=== PATIENT | male | born 1970 | race Caucasian/White ===

== ENCOUNTER 2021-09-19 13:33 | Inpatient (IN) ==
[2021-09-19] MEDS ORDERED: DEXAMETHASONE 4 MG TABLET PO ONE (14:07)
[2021-09-19] MEDS ORDERED: 0.9 % SODIUM CHLORIDE 1,000 ML IV ONE (14:07)
[2021-09-19] MEDS ORDERED: IPRATROPIUM/ALBUTEROL 3 ML AMPUL.NEB NEB PRN (14:07)
--- NOTE | 2021-09-19 14:15 | Emergency Department Note ---
SOB HPI General Chief Complaint: Shortness of Breath/Dyspnea Stated Complaint: shortness of breath, covid + Time Seen by Provider: 09/19/21 13:50 Source: patient and EMS Mode of arrival: EMS Limitations: no limitations History of Present Illness HPI Narrative: Patient is a 50-year-old gentleman who arrives to the emergency department by ambulance complaining of shortness of breath. History is provided by the iván head and review of his medical records. The patient started feeling ill around September 05. He took a home COVID test that was positive on September 06. He had been treating his symptoms at home but started feeling more short of breath on September 12. He was treated in the emergency department and his symptoms improved so he was discharged home. His symptoms worsened and he presented once again on September 16. He was found to be somewhat hypoxemic and started on nasal cannula oxygen with improvement in his symptoms. No bed was available and the patient did not want to be transferred so home oxygen was arranged and he was discharged home on dexamethasone which he has been taking as prescribed. Over the past 2 days his symptoms have continued to worsen. He denies any associated chest pain. He does continue to have a nonproductive cough. His fever and chills has resolved. This morning, he was feeling more short of breath so he decided to return for reevaluation. Nothing seems to make the symptoms any better. He has tried lying on his stomach but the symptoms seem to get worse. He did had a negative CT pulmonary angiogram on the seventh when he was here. Related Data Previous Rx's Medication Instructions Recorded albuterol sulfate 90 mcg/actuation 2 puff INHALATION Q6H PRN #8.5 g 09/16/21 aerosol inhaler dexamethasone 6 mg tablet 6 mg PO QDAY #7 tab 09/16/21 (Decadron) Allergies Allergy/AdvReac Type Severity Reaction Status Date / Time No Known Drug Allergies Allergy Verified 09/19/21 13:40 Review of Systems ROS ROS Narrative: Narrative: All systems ED: reviewed and negative except as stated. 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 Gen -patient is awake and alert and appears in moderate distress. The patient is well groomed. HEENT -head is atraumatic. There is no conjunctival pallor or scleral icterus. Mucous membranes are dry CV -S1-S2 regular rate and rhythm. Peripheral pulses are palpable. There is no JVD. Resp -breathing is somewhat labored while on supplemental oxygen via a nonrebreather. The patient is able to speak in short sentences but is visibly increased work of breathing after conversation. Lungs have mild rhonchi bilaterally. There is no cyanosis. GI - Abdomen is soft and nontender to palpation. There is no guarding or rebound tenderness. Derm -skin is warm and diaphoretic. There is no visible rash. MSK -present extremities are atraumatic. Psych -patient has appropriate affect. The patient does not appear internally stimulated. Neuro -patient answers questions appropriately with fluent speech. Patient moves all present extremities equally. General Limitations: no limitations Course Vital Signs Vital signs: Vital Signs Temperature 98.1 F 09/19/21 13:34 Pulse Rate 90 09/19/21 13:34 Respiratory Rate 24 H 09/19/21 13:34 Blood Pressure 154/95 09/19/21 13:34 Pulse Oximetry (%) 95 09/19/21 13:34 Temperature 98.1 F 09/19/21 13:34 Pulse Rate 90 09/19/21 15:46 Respiratory Rate 26 H 09/19/21 15:46 Blood Pressure 165/96 09/19/21 15:46 Pulse Oximetry (%) 98 09/19/21 15:46 [facility] MDM Narrative Medical decision making narrative: I personally performed interpreted limited bedside transthoracic echocardiogram and pulmonary ultrasound. I obtained an apical four-chamber view as well as parasternal long and short axis views. There is no pericardial effusion. There is normal left ventricular ejection fraction. There is no evidence of right ventricular strain. Lung dinero are B line predominant bilaterally. Patient presents with worsening shortness of breath in the setting of previously diagnosed COVID-19. I considered the possibility of a pulmonary embolus but his symptoms did not suddenly worsen and he had a negative CT pulmonary angiogram 2 days ago. 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 Patient was started on high flow nasal cannula oxygen and his symptoms improved. I discussed the patient's history examination and diagnostic findings with Dr. Cast, who agrees with the plan of care and accepts admission. Critical care time I provided 35 minutes of critical care time. This was in addition to any separately billable procedures. The patient was given supplemental oxygen to treat his hypoxemic respiratory failure. He was given dexamethasone to treat the causative COVID-19 pneumonia.. The patient was closely monitored for response to treatment and stability of vital signs throughout their emergency department stay. Lab Data Lab results reviewed: Yes I reviewed the patient's lab results. Result diagrams: 09/19/21 13:59 09/19/21 13:59 Labs: Lab Results 09/19/21 09/19/21 Range/Units 13:59 13:59 WBC 12.4 H (4.5-11.0) K/mcL RBC 4.67 (4.63-6.08) M/mcL Hgb 15.3 (13.7-17.5) g/dL Hct 45.2 (40.1-51.0) % MCV 96.8 (80.0-100.0) fL MCH 32.8 (26.0-34.0) pg MCHC 33.8 (31.0-36.0) g/dL RDW 12.4 (11.5-14.5) % Plt Count 256 (140-440) K/mcL MPV 9.7 (7.4-10.4) fL Neut % (Auto) 87.0 H (38.0-78.0) % Lymph % (Auto) 7.0 L (15.5-49.0) % [place] % (Auto) 5.7 (1.0-12.0) % Eos % (Auto) 0.1 (0.0-7.0) % Baso % (Auto) 0.2 (0.0-2.0) % Lymph # (Auto) 0.87 L (1.50-4.80) K/mcL [place] # (Auto) 0.70 (0.10-0.90) K/mcL Eos # (Auto) 0.01 (0.00-0.70) K/mcL Baso # (Auto) 0.02 (0.00-0.30) K/mcL Absolute Neutrophils 10.77 H (1.80-8.00) K/mcL Sodium 140 (133-145) mmol/L Potassium 4.2 (3.3-5.1) mmol/L Chloride 100 (96-108) mmol/L Carbon Dioxide 24 (22-30) mmol/L Anion Gap 16.0 (8.0-16.0) BUN 18 (6-20) mg/dL Creatinine 0.8 (0.7-1.2) mg/dL GFR Calculation 103 Glucose 130 H (70-105) mg/dL Calcium 8.8 (8.6-10.4) mg/dL Total Bilirubin 0.6 (0.1-1.0) mg/dL AST 109 H (<40) U/L ALT 173 H (<40) U/L Alkaline Phosphatase 124 H (39-117) U/L Total Protein 7.7 (5.9-8.4) gm/dL Albumin 3.7 (3.2-5.2) gm/dL Globulin 4.0 H (2.2-3.7) gm/dL Albumin/Globulin Ratio 0.9 L (1.0-2.3) EKG Data EKG #1: EKG attestation: Yes I reviewed and interpreted this EKG. EKG results narrative: EKG performed at 2:28 PM: Sinus rhythm, rate 87. Normal P wave QRS and T wave morphology. There U waves present in multiple leads. No ST segment deviation. Normal CA QRS and QTc duration. No old EKG immediately available for comparison. EKG was interpreted by me. 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
[2021-09-19 14:48] LABS: Basophils # (Auto) 0.02 K/mcL (0.00-0.30); Basophils % (Auto) 0.2 % (0.0-2.0); Eosinophils # (Auto) 0.01 K/mcL (0.00-0.70); Eosinophils % (Auto) 0.1 % (0.0-7.0); Hematocrit 45.2 % (40.1-51.0); Hemoglobin 15.3 g/dL (13.7-17.5); Lymphocytes # (Auto) 0.87 K/mcL (1.50-4.80); Mean Cell Volume 96.8 fL (80.0-100.0); Mean Corpuscular HGB Conc 33.8 g/dL (31.0-36.0); Mean Platelet Volume 9.7 fL (7.4-10.4); Monocytes % (Auto) 5.7 % (1.0-12.0); Platelet Count 256 K/mcL (140-440); RBC 4.67 M/mcL (4.63-6.08); Red Cell Distribution Width 12.4 % (11.5-14.5); WBC 12.4 K/mcL (4.5-11.0)
[2021-09-19] MEDS ORDERED: ACETAMINOPHEN 500 MG TABLET PO ONE (14:57)
--- NOTE | 2021-09-19 14:57 | XRay Report ---
CLINICAL INFORMATION: Pneumonia COMPARISON: None. TECHNIQUE: PA and Lateral views FINDINGS: The heart size, mediastinum and pulmonary vessels are unremarkable. Moderate, yet vague, patchy infiltrates are seen in both mid and lower lungs. There are no effusions. The bones and soft tissues are within normal limits. IMPRESSION: Moderate vague patchy infiltrates in both mid and lower lungs. Suspect infection Interpreted and Authenticated by: Humza Greene 09/19/21
[2021-09-19] MEDS ORDERED: ONDANSETRON 4 MG/2 ML VIAL IV ONE (14:58)
[2021-09-19 15:02] LABS: ALT/SGPT 173 U/L (<40); AST/SGOT 109 U/L (<40); Albumin 3.7 gm/dL (3.2-5.2); Albumin/Globulin Ratio 0.9 (1.0-2.3); Alkaline Phosphatase 124 U/L (39-117); Bilirubin,Total 0.6 mg/dL (0.1-1.0); Blood Urea Nitrogen 18 mg/dL (6-20); Calcium 8.8 mg/dL (8.6-10.4); Carbon Dioxide 24 mmol/L (22-30); Chloride 100 mmol/L (96-108); Glomerular Filtration Rate 103; Glucose 130 mg/dL (70-105)
--- NOTE | 2021-09-19 16:42 | Internal Med History&Physical ---
HPI History of Present Illness Patient information: Note initiated : 09/19/21 at 4:41 pm Service Date, if different from initiated Date: [] Patient: Ruben Helm 50 y/o M admitted on for shortness of breath, covid +. Chief Complaint: [] History of present illness: Ruben Helm is a 50-year-old male with obesity, BMI 31, and no other significant past medical history who was diagnosed with COVID-19 on 09/06/2021 with a home test kit. The patient presented to the emergency department on 09/12/2021 and was discharged to home, his symptoms progressively worsened and he returned to the emergency department on 09/16/2021 and was discharged to home with dexamethasone and home oxygen due to bed capacity constraints in the hospital. During that visit, a CT PE protocol was negative for pulmonary embolism and did show typical COVID-19 infiltrates. The patient returned to the emergency department on 09/19/2021 for progressively worsening symptoms and found to be severely hypoxic requiring heated and humidified high flow nasal cannula with an FiO2 of 80. Shows moderate vague patchy infiltrates in both the mid and lower lung dinero bilaterally. Hospital medicine was asked to admit the patient for further management. Review of systems Constitutional: Positive for chills, fever, fatigue Eyes: no vision changes or pain Cardiovascular: no chest pain, no palpitations Respiratory: Positive for dyspnea Gastrointestinal: Positive for diarrhea Genitourinary: no dysuria or difficulty voiding Musculoskeletal: Positive for lower back pain Integumentary: no skin lesion or wound Neurological: no focal weakness or numbness Psychiatric: Positive for anxiousness Physical exam Head: Atraumatic, normal inspection. Eyes: normal appearance, no scleral icterus. Neck: full ROM Respiratory: Respiratory rate in the mid 20s, diffuse bilateral fine crackles, no wheezing appreciated Cardiovascular: normal rate and rhythm, S1, S2. GI/Abdominal: Obesely distended, soft, nontender, no guarding. Extremities: full range of motion, nontender. Neurological: CN II-XII intact, intact motor, intact sensation. Psychiatric: normal mood. 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 for [place] license Social History alcohol intake frequency: 0-2 drinks per day substance use type: does not use MEDS/ALLERGIES Home Medications and Allergies Home Medications Medication Instructions Recorded Confirmed Type albuterol sulfate 90 mcg/actuation 2 puff INHALATION Q6H PRN #8.5 g 09/16/21 09/19/21 Rx aerosol inhaler dexamethasone 6 mg tablet 6 mg PO QDAY #7 tab 09/16/21 09/19/21 Rx (Decadron) Allergies Allergy/AdvReac Type Severity Reaction Status Date / Time No Known Drug Allergies Allergy Verified 09/19/21 13:40 EXAM Constitutional Vitals: Temp Pulse Resp BP Pulse Ox 98.1 F 90 26 H 165/96 98 09/19/21 13:34 09/19/21 15:46 09/19/21 15:46 09/19/21 15:46 09/19/21 15:46 DATA Data Completed and Pending Labs: Labs from last 24 hours 09/19/21 09/19/21 09/19/21 16:03 16:03 16:03 WBC RBC Hgb Hct MCV MCH MCHC RDW Plt Count MPV Neut % (Auto) Lymph % (Auto) [place] % (Auto) Eos % (Auto) Baso % (Auto) Lymph # (Auto) [place] # (Auto) Eos # (Auto) Baso # (Auto) Absolute Neutrophils Sodium Potassium Chloride Carbon Dioxide Anion Gap BUN Creatinine GFR Calculation Glucose Calcium Total Bilirubin AST ALT Alkaline Phosphatase Troponin T C-Reactive Protein Pending NT-Pro-B Natriuret Pep Total Protein Albumin Globulin Albumin/Globulin Ratio Procalcitonin Pending POC Troponin I 0 L 09/19/21 09/19/21 09/19/21 13:59 13:59 13:59 WBC RBC Hgb Hct MCV MCH MCHC RDW Plt Count MPV Neut % (Auto) Lymph % (Auto) [place] % (Auto) Eos % (Auto) Baso % (Auto) Lymph # (Auto) [place] # (Auto) Eos # (Auto) Baso # (Auto) Absolute Neutrophils Sodium 140 Potassium 4.2 Chloride 100 Carbon Dioxide 24 Anion Gap 16.0 BUN 18 Creatinine 0.8 GFR Calculation 103 Glucose 130 H Calcium 8.8 Total Bilirubin 0.6 AST 109 H ALT 173 H Alkaline Phosphatase 124 H Troponin T < 0.01 C-Reactive Protein NT-Pro-B Natriuret Pep 446.7 H Total Protein 7.7 Albumin 3.7 Globulin 4.0 H Albumin/Globulin Ratio 0.9 L Procalcitonin POC Troponin I 09/19/21 13:59 WBC 12.4 H RBC 4.67 Hgb 15.3 Hct 45.2 MCV 96.8 MCH 32.8 MCHC 33.8 RDW 12.4 Plt Count 256 MPV 9.7 Neut % (Auto) 87.0 H Lymph % (Auto) 7.0 L [place] % (Auto) 5.7 Eos % (Auto) 0.1 Baso % (Auto) 0.2 Lymph # (Auto) 0.87 L [place] # (Auto) 0.70 Eos # (Auto) 0.01 Baso # (Auto) 0.02 Absolute Neutrophils 10.77 H Sodium Potassium Chloride Carbon Dioxide Anion Gap BUN Creatinine GFR Calculation Glucose Calcium Total Bilirubin AST ALT Alkaline Phosphatase Troponin T C-Reactive Protein NT-Pro-B Natriuret Pep Total Protein Albumin Globulin Albumin/Globulin Ratio Procalcitonin POC Troponin I A/P Narrative A/P Narrative: Assessment: 50-year-old obese male admitted for acute hypoxic respiratory failure secondary to severe COVID-19 pneumonia. Symptom onset was 09/05/2021, diagnosis made by home test kit on 09/06/2021. The patient's symptoms progressed at home in spite of oral dexamethasone therapy. #Acute hypoxic respiratory failure #Severe COVID-19 pneumonia #Leukocytosis likely steroid induced #Elevated LFTs secondary to COVID illness #Obesity BMI 31 Plan -Dexamethasone 6 mg IV daily. Unlikely to benefit from remdesivir at this point given the duration of illness. -Trial of Lopressor 5 mg IV 3 times daily x3 based on [place] trial data. -Oxygen supplementation, HHFNC preferred but may require CPAP especially at bedtime. -Monitor respiratory status closely in PCU. -Check CRP and procalcitonin. -BANDAR SARS-CoV-2 and Influenza A+B antigen test. -Consider tocilizumab or baricitinib, empiric antibiotics. -Daily CBC, inpatient panel, CRP. -Regular diet. 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 -DVT prophylaxis: Lovenox SQ -Code status: Full -Disposition: Will depend on clinical course. Time Spent With Patient Time: Total time spent is greater than 50% in coordination of care (as documented) at patient's floor/unit and/or counseling patient:
[2021-09-19 18:34] LABS: Appearance,Urine Clear (Clear); Bilirubin,Urine Negative (Negative); Color,Urine Yellow; Culture Indicated,Urine No; Glucose,Urine (UA) Negative (Negative); Ketones,Urine Negative (Negative); Leukocyte Esterase,Urine Negative /uL (Negative); Mucus,Urine FEW /hpf; Nitrate,Urine Negative (Negative); Specific Gravity,Urine 1.015 (1.000-1.035); Urine Blood Negative ery/mcL (Negative); Urine Hyaline Cast 6 /lph (0-2); Urine RBC 0 /hpf (0-3); Urine Squamous Epithelial Cell 0 /hpf (0-4); Urine WBC 1 /hpf (0-4); Urobilinogen,Urine 2.0 E.U./dL mg/dL
[2021-09-19] MEDS ORDERED: LACTULOSE 20 GM/30 ML ORAL.SOL PO PRN (20:24)
[2021-09-19] MEDS ORDERED: SENNOSIDES 1 TABLET PO PRN (20:24)
[2021-09-19] MEDS ORDERED: ONDANSETRON 4 MG/2 ML VIAL IV PRN (20:24)
[2021-09-19 20:52] LABS: ALT/SGPT 184 U/L (<40); AST/SGOT 120 U/L (<40); Albumin 4.1 gm/dL (3.2-5.2); Albumin/Globulin Ratio 1.3 (1.0-2.3); Alkaline Phosphatase 134 U/L (39-117); Bilirubin,Direct 0.2 mg/dL (<0.3); Bilirubin,Total 0.5 mg/dL (0.1-1.0); Blood Urea Nitrogen 18 mg/dL (6-20); Calcium 9.3 mg/dL (8.6-10.4); Carbon Dioxide 21 mmol/L (22-30); Chloride 102 mmol/L (96-108); Globulin 3.2 gm/dL (2.2-3.7); Glomerular Filtration Rate 98; Glucose 131 mg/dL (70-105); Lactate Dehydrogenase 642 U/L (135-225); Phosphorous 3.6 mg/dL (2.5-4.5); Triglycerides 353 mg/dL (<150); Uric Acid 4.5 mg/dL (2.5-8.0)
[2021-09-19] MEDS: METOPROLOL TARTRATE 5 MG/5 ML VIAL IV SCH ×2 (20:52→22:55)
[2021-09-19] MEDS: cefTRIAXone 1 GM VIAL IV SCH (20:52)
[2021-09-19] MEDS: 0.9 % SODIUM CHLORIDE 10 ML SYRINGE IV SCH (20:52)
[2021-09-19] MEDS: AZITHROMYCIN 500 MG in DEXTROSE 5% IN WATER 250 ML IV SCH (21:14)
[2021-09-20] MEDS: METOPROLOL TARTRATE 5 MG/5 ML VIAL IV SCH ×2 (01:31→01:43)
[2021-09-20] MEDS: 0.9 % SODIUM CHLORIDE 10 ML SYRINGE IV SCH ×4 (04:43→23:55)
[2021-09-20 08:14] LABS: ALT/SGPT 142 U/L (<40); AST/SGOT 83 U/L (<40); Albumin 3.4 gm/dL (3.2-5.2); Albumin/Globulin Ratio 1.2 (1.0-2.3); Alkaline Phosphatase 111 U/L (39-117); Bilirubin,Direct 0.2 mg/dL (<0.3); Bilirubin,Total 0.6 mg/dL (0.1-1.0); Blood Urea Nitrogen 17 mg/dL (6-20); Calcium 8.2 mg/dL (8.6-10.4); Carbon Dioxide 21 mmol/L (22-30); Chloride 100 mmol/L (96-108); Globulin 2.8 gm/dL (2.2-3.7); Glomerular Filtration Rate 103; Glucose 131 mg/dL (70-105); Lactate Dehydrogenase 529 U/L (135-225); Triglycerides 253 mg/dL (<150); Uric Acid 4.8 mg/dL (2.5-8.0)
[2021-09-20] MEDS ORDERED: METOPROLOL TARTRATE 5 MG/5 ML VIAL IV SCH (09:00)
[2021-09-20] MEDS ORDERED: DEXAMETHASONE 10 MG/ML VIAL IV SCH (09:00)
[2021-09-20] MEDS: DEXAMETHASONE 10 MG/ML VIAL IV SCH (09:00)
[2021-09-20] MEDS: ENOXAPARIN 40 MG/0.4 ML SYRINGE SQ SCH (09:00)
[2021-09-20] MEDS: cefTRIAXone 1 GM VIAL IV SCH (09:00)
[2021-09-20 11:05] LABS: Hematocrit 39.8 % (40.1-51.0); Hemoglobin 13.8 g/dL (13.7-17.5); Mean Cell Volume 95.9 fL (80.0-100.0); Mean Corpuscular HGB Conc 34.7 g/dL (31.0-36.0); Mean Platelet Volume 10.4 fL (7.4-10.4); Platelet Count 196 K/mcL (140-440); RBC 4.15 M/mcL (4.63-6.08); Red Cell Distribution Width 12.4 % (11.5-14.5); WBC 10.6 K/mcL (4.5-11.0)
[2021-09-20 11:19] LABS: Lymphocytes % 3 % (15-49); Monocytes % (Manual) 8 % (1-12); Platelet Estimate NORMAL (Normal); RBC Morphology NORMAL (Normal); Reactive Lymphocytes 2 % (0-2); Segmented Neutrophils % 87 % (38-78)
[2021-09-20] MEDS: ACETAMINOPHEN 325 MG TABLET PO PRN (12:15)
--- NOTE | 2021-09-20 12:52 | Internal Med Progress Note ---
SUBJECTIVE Subjective Patient information: Note initiated : 09/20/21 at 12:44 pm Service Date, if different from initiated Date: [] Patient: Ruben Helm 50 y/o M admitted on 09/19/21 for shortness of breath, covid +. Chief Complaint: [] Interval history: Ruben Helm is a 50-year-old male with obesity, BMI 31, and no other significant past medical history who was diagnosed with COVID-19 on 09/06/2021 with a home test kit. The patient presented to the emergency department on 09/12/2021 and was discharged to home, his symptoms progressively worsened and he returned to the emergency department on 09/16/2021 and was discharged to home with dexamethasone and home oxygen due to bed capacity constraints in the hospital. During that visit, a CT PE protocol was negative for pulmonary embolism and did show typical COVID-19 infiltrates. The patient returned to the emergency department on 09/19/2021 for progressively worsening symptoms and found to be severely hypoxic requiring heated and humidified high flow nasal cannula with an FiO2 of 80. Show s moderate vague patchy infiltrates in both the mid and lower lung dinero bilaterally. Hospital medicine was asked to admit the patient for further management. 09/20 Requiring HHFNC with flow of 30, FIO2 80. Increased Dexamethasone to 20 mg IV daily for severe ARDS. CRP trending up. BANDAR negative for COVID and Influenza A+B. Physical exam Head: Atraumatic, normal inspection. Eyes: normal appearance, no scleral icterus. Neck: full ROM Respiratory: Respiratory rate in the mid 20s, diffuse bilateral fine crackles, no wheezing appreciated Cardiovascular: normal rate and rhythm, S1, S2. GI/Abdominal: Obesely distended, soft, nontender, no guarding. Extremities: full range of motion, nontender. Neurological: CN II-XII intact, intact motor, intact sensation. Psychiatric: normal mood. Skin: warm, normal color Constitutional Vitals: Vital Signs Temp Pulse Resp BP Pulse Ox 98.2 F 61 26 H 145/80 85 L 09/20/21 12:01 09/20/21 07:15 09/20/21 12:08 09/20/21 12:01 09/20/21 12:08 Period Temp Pulse Resp BP Sys/Reyes Pulse Ox Last 24 Hr 98.1 F-99.8 F 55-98 18-38 128-168/64-103 85-100 Intake and Output 09/19/21 09/20/21 09/20/21 21:59 05:59 13:59 Intake Total 1000 250 Output Total 300 1100 600 Balance 700 -850 -600 Weight 105.279 kg Intake & Output: Intake & Output 09/19/21 09/20/21 09/20/21 21:59 05:59 13:59 Intake Total 1000 250 Output Total 300 1100 600 Balance 700 -850 -600 Weight 105.279 kg Intake: IV 1000 250 Sodium Chloride 0.9% 1,000 ml @ 1000 Wide Open IV BOLUS ONE Rx#: [id number] Zithromax 500 mg In Dextrose 5% 250 in Water 250 ml @ 250 mls/hr IV Q24H [facility] Rx#:[id number] Output: Void Amount 300 1100 600 Other: Urine Appearance Clear Clear Clear Urine Color Dark Yellow Bright Yellow Bright Yellow Urine Odor Normal OBJ DATA Labs CBC & Chem 7: 09/20/21 06:33 09/20/21 06:29 Labs: Abnormal Lab Results 09/20/21 09/20/21 09/20/21 06:33 06:31 06:29 WBC RBC 4.15 L Hct 39.8 L Neut % (Auto) Lymph % (Auto) Lymph # (Auto) Seg Neutrophils % 87 H Lymphocytes % 3 L Absolute Neutrophils Sodium Potassium 5.2 H Carbon Dioxide 21 L Anion Gap Glucose 131 H Calcium 8.2 L Magnesium 2.8 H GGT 212 H AST 83 H ALT 142 H Alkaline Phosphatase Lactate Dehydrogenase 529 H C-Reactive Protein 11.70 H NT-Pro-B Natriuret Pep Globulin Albumin/Globulin Ratio Triglycerides 253 H Procalcitonin Urine Protein Urine Urobilinogen Hyaline Casts Urine Mucus POC Troponin I 09/19/21 09/19/21 09/19/21 16:30 16:03 16:03 WBC RBC Hct Neut % (Auto) Lymph % (Auto) Lymph # (Auto) Seg Neutrophils % Lymphocytes % Absolute Neutrophils Sodium 146 H Potassium Carbon Dioxide 21 L Anion Gap 23.0 H Glucose 131 H Calcium Magnesium 2.6 H GGT 252 H AST 120 H ALT 184 H Alkaline Phosphatase 134 H Lactate Dehydrogenase 642 H C-Reactive Protein 7.60 H NT-Pro-B Natriuret Pep Globulin Albumin/Globulin Ratio Triglycerides 353 H Procalcitonin Urine Protein 30 mg/dl A Urine Urobilinogen 2.0 e.u./dl A Hyaline Casts 6 H Urine Mucus Few A POC Troponin I 09/19/21 09/19/21 09/19/21 16:03 16:03 13:59 WBC RBC Hct Neut % (Auto) Lymph % (Auto) Lymph # (Auto) Seg Neutrophils % Lymphocytes % Absolute Neutrophils Sodium Potassium Carbon Dioxide Anion Gap Glucose Calcium Magnesium GGT AST ALT Alkaline Phosphatase Lactate Dehydrogenase C-Reactive Protein NT-Pro-B Natriuret Pep 446.7 H Globulin Albumin/Globulin Ratio Triglycerides Procalcitonin 0.28 H Urine Protein Urine Urobilinogen Hyaline Casts Urine Mucus POC Troponin I 0 L 09/19/21 09/19/21 13:59 13:59 WBC 12.4 H RBC Hct Neut % (Auto) 87.0 H Lymph % (Auto) 7.0 L Lymph # (Auto) 0.87 L Seg Neutrophils % Lymphocytes % Absolute Neutrophils 10.77 H Sodium Potassium Carbon Dioxide Anion Gap Glucose 130 H Calcium Magnesium GGT AST 109 H ALT 173 H Alkaline Phosphatase 124 H Lactate Dehydrogenase C-Reactive Protein NT-Pro-B Natriuret Pep Globulin 4.0 H Albumin/Globulin Ratio 0.9 L Triglycerides Procalcitonin Urine Protein Urine Urobilinogen Hyaline Casts Urine Mucus POC Troponin I Meds: Medications Acetaminophen (Acetaminophen 325 Mg Tablet) 650 mg PO Q6HP PRN; Protocol PRN Reason: Per Pain Protocol/Fever > 101 Last Admin: 09/20/21 12:15 Dose: 650 mg Documented by: Ceftriaxone Sodium (Ceftriaxone 1 Gm Vial) 1 gm IV Q24H [facility]; Protocol Last Admin: 09/20/21 09:00 Dose: 1 gm Documented by: Dexamethasone (Dexamethasone 10 Mg/Ml Vial) 20 mg IV DAILY [facility] Stop: 09/25/21 08:59 Last Admin: 09/20/21 09:00 Dose: 20 mg Documented by: Dexamethasone (Dexamethasone 10 Mg/Ml Vial) 10 mg IV DAILY [facility] Stop: 09/30/21 08:59 Enoxaparin Sodium (Enoxaparin 40 Mg/0.4 Ml Syringe) 40 mg SQ DAILY [facility] Last Admin: 09/20/21 09:00 Dose: 40 mg Documented by: Azithromycin 500 mg/ Dextrose 250 mls @ 250 mls/hr IV Q24H [facility]; Protocol Stop: 09/21/21 21:23 Last Infusion: 09/19/21 22:56 Dose: Infused Documented by: Lactulose (Lactulose 20 Gm/30 Ml Oral.Comfort) 10 gm PO DAILYP PRN PRN Reason: Constipation Ondansetron HCl (Ondansetron 4 Mg/2 Ml Vial) 4 mg IV Q4HP PRN; Protocol PRN Reason: Nausea And Vomiting Senna (Sennosides 1 Tablet) 2 tab PO HSP PRN PRN Reason: Constipation Sodium Chloride (0.9 % Sodium Chloride 10 Ml Syringe) 10 ml IV Q8 [facility]ANI Last Admin: 09/20/21 12:16 Dose: 10 ml Documented by: A/P Narrative A/P Narrative: Assessment: 50-year-old obese male admitted for acute hypoxic respiratory failure secondary to severe COVID-19 pneumonia. Symptom onset was 09/05/2021, diagnosis made by home test kit on 09/06/2021. The patient's symptoms progressed at home in spite of oral dexamethasone therapy. #Acute hypoxic respiratory failure #Severe COVID-19 pneumonia/ARDS #Mid-range procalcitonin #Leukocytosis likely steroid induced #Elevated LFTs secondary to COVID illness #Obesity BMI 31 Plan -Dexamethasone 6 mg IV daily. Unlikely to benefit from remdesivir at this point given the duration of illness. -Oxygen supplementation, HHFNC preferred but may require CPAP especially at bedtime. -Empiric Ceftriaxone and Azithromycin. -PANTHER results pending. -Monitor respiratory status closely in PCU. -Discontinue Lopressor for bradycardia. -Daily CBC, inpatient panel, CRP. -Regular diet. 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 -Prone position as able. -DVT prophylaxis: Lovenox SQ -Code status: Full -Disposition: Will depend on clinical course. Time Spent With Patient Time: Total time spent is greater than 50% in coordination of care (as documented) at patient's floor/unit and/or counseling patient: QUALITY VTE Deep Vein Thrombosis/Pulmonary Embolism Present on Admission: No
[2021-09-20] MEDS: AZITHROMYCIN 500 MG in DEXTROSE 5% IN WATER 250 ML IV SCH (15:24)
[2021-09-20] MEDS: DEXMEDETOMIDINE 400 MCG in PREMIX 1 BAG IV PRN (16:01)
[2021-09-20] MEDS: 0.9 % SODIUM CHLORIDE 250 ML IV SCH (16:01)
--- NOTE | 2021-09-20 21:01 | EKG ---
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
[2021-09-21] MEDS: ACETAMINOPHEN 325 MG TABLET PO PRN (01:51)
[2021-09-21] MEDS: DEXMEDETOMIDINE 400 MCG in PREMIX 1 BAG IV PRN ×2 (02:04→10:31)
[2021-09-21] MEDS: 0.9 % SODIUM CHLORIDE 10 ML SYRINGE IV SCH ×3 (03:40→20:30)
[2021-09-21] MEDS: 0.9 % SODIUM CHLORIDE 250 ML IV SCH ×2 (04:36→17:35)
[2021-09-21 06:45] LABS: Hematocrit 40.6 % (40.1-51.0); Hemoglobin 13.9 g/dL (13.7-17.5); Mean Cell Volume 94.9 fL (80.0-100.0); Mean Corpuscular HGB Conc 34.2 g/dL (31.0-36.0); Mean Platelet Volume 10.7 fL (7.4-10.4); Platelet Count 172 K/mcL (140-440); RBC 4.28 M/mcL (4.63-6.08)
[2021-09-21 07:09] LABS: ALT/SGPT 200 U/L (<40); AST/SGOT 83 U/L (<40); Albumin 3.4 gm/dL (3.2-5.2); Albumin/Globulin Ratio 1.1 (1.0-2.3); Alkaline Phosphatase 149 U/L (39-117); Bilirubin,Direct 0.3 mg/dL (<0.3); Bilirubin,Total 0.7 mg/dL (0.1-1.0); Blood Urea Nitrogen 21 mg/dL (6-20); Calcium 8.4 mg/dL (8.6-10.4); Carbon Dioxide 21 mmol/L (22-30); Chloride 97 mmol/L (96-108); Glomerular Filtration Rate 103; Glucose 237 mg/dL (70-105); Lactate Dehydrogenase 521 U/L (135-225); Phosphorous 4.2 mg/dL (2.5-4.5); Triglycerides 206 mg/dL (<150); Uric Acid 5.5 mg/dL (2.5-8.0)
[2021-09-21 07:22] LABS: Band Neutrophils % 2 % (0-10); Lymphocytes % 6 % (15-49); Monocytes % (Manual) 3 % (1-12); Platelet Estimate NORMAL (Normal); RBC Morphology NORMAL (Normal); Segmented Neutrophils % 89 % (38-78)
[2021-09-21] MEDS: DEXAMETHASONE 10 MG/ML VIAL IV SCH (08:02)
[2021-09-21] MEDS: ENOXAPARIN 40 MG/0.4 ML SYRINGE SQ SCH (08:02)
[2021-09-21] MEDS ORDERED: METOPROLOL TARTRATE 5 MG/5 ML VIAL IV SCH (09:00)
--- NOTE | 2021-09-21 09:48 | XRay Report ---
CLINICAL INFORMATION: Follow-up infiltrates COMPARISON: 09/19/2021 TECHNIQUE: Portable FINDINGS: The heart size, mediastinum and pulmonary vessels are unremarkable. Moderate patchy infiltrates in both mid and lower lungs have progressed considerably since the comparison exam two days ago. No effusions. Bones and soft tissues normal. IMPRESSION: Moderate patchy infiltrates both mid and lower lungs progressing considerably over the past two days Interpreted and Authenticated by: Humza Greene 09/21/21
[2021-09-21] MEDS: cefTRIAXone 1 GM VIAL IV SCH (10:32)
[2021-09-21] MEDS: AZITHROMYCIN 500 MG in DEXTROSE 5% IN WATER 250 ML IV SCH (14:14)
[2021-09-21] MEDS: BARICITINIB 2 MG TABLET PO SCH (14:14)
[2021-09-21] MEDS: traMADol 50 MG TABLET PO PRN ×2 (15:12→20:30)
--- NOTE | 2021-09-21 18:55 | Internal Med Progress Note ---
SUBJECTIVE Subjective Patient information: Note initiated : 09/21/21 at 6:52 pm Service Date, if different from initiated Date: [] Patient: Ruben Helm 50 y/o M admitted on 09/19/21 for shortness of breath, covid +. Chief Complaint: [] Interval history: Ruben Helm is a 50-year-old male with obesity, BMI 31, and no other significant past medical history who was diagnosed with COVID-19 on 09/06/2021 with a home test kit. The patient presented to the emergency department on 09/12/2021 and was discharged to home, his symptoms progressively worsened and he returned to the emergency department on 09/16/2021 and was discharged to home with dexamethasone and home oxygen due to bed capacity constraints in the hospital. During that visit, a CT PE protocol was negative for pulmonary embolism and did show typical COVID-19 infiltrates. The patient returned to the emergency department on 09/19/2021 for progressively worsening symptoms and found to be severely hypoxic requiring heated and humidified high flow nasal cannula with an FiO2 of 80. Shows moderate vague patchy infiltrates in both the mid and lower lung dinero bilaterally. Hospital medicine was asked to admit the patient for further management. 09/20 Requiring HHFNC with flow of 30, FIO2 80. Increased Dexamethasone to 20 mg IV daily for severe ARDS. CRP trending up. BANDAR negative for COVID and Influenza A+B. 09/21 Increasing CRP, started Baricitinib. PANTHER resulted as not detected. Clinically this appears to be ARDS secondary to a COVID illness that started around 09/04/21. Physical exam Head: Atraumatic, normal inspection. Eyes: normal appearance, no scleral icterus. Neck: full ROM Respiratory: Respiratory rate in the mid 20s, diffuse bilateral fine crackles, no wheezing appreciated Cardiovascular: normal rate and rhythm, S1, S2. GI/Abdominal: Obesely distended, soft, nontender, no guarding. Extremities: full range of motion, nontender. Neurological: CN II-XII intact, intact motor, intact sensation. Psychiatric: normal mood. Skin: warm, normal color Constitutional Vitals: Vital Signs Temp Pulse Resp BP Pulse Ox 96.9 F L 72 18 131/87 91 09/21/21 16:01 09/21/21 11:04 09/21/21 18:06 09/21/21 18:01 09/21/21 18:06 Period Temp Pulse Resp BP Sys/Reyes Pulse Ox Last 24 Hr 96.9 F-98.3 F 72-72 15-34 119-168/76-101 87-97 Intake and Output 09/21/21 09/21/21 09/21/21 05:59 13:59 21:59 Intake Total 1267 700 839 Output Total 475 800 700 Balance 792 -100 139 Intake & Output: Intake & Output 09/21/21 09/21/21 09/21/21 05:59 13:59 21:59 Intake Total 1267 700 839 Output Total 475 800 700 Balance 792 -100 139 Intake: IV 307 100 599 Sodium Chloride 0.9% 250 ml @ 250 250 20 mls/hr IV .[id number] [facility] Rx#: [id number] Zithromax 500 mg In Dextrose 5% 250 in Water 250 ml @ 250 mls/hr IV Q24H [facility] Rx#:[id number] Precedex 400 Mcg/100 ml 57 100 99 Dextrose 400 Mcg In Premix 1 Bag @ 0.2 MCG/KG/HR 5.264 mls/ hr IV .Q19H [facility] Rx#:[id number] Oral 960 600 240 Output: Void Amount 475 800 700 Other: Meal Pineapple Breakfast Lunch Percent of Meal Consumed 100% 75% 75% Feeding Ability Total Assistance Independent Independent Urine Appearance Clear Clear Clear Urine Color Dark Yellow Light Lara Dark Yellow Urine Odor Normal Normal OBJ DATA Labs CBC & Chem 7: 09/21/21 05:23 09/21/21 05:22 Labs: Abnormal Lab Results 09/21/21 09/21/21 09/21/21 05:23 05:23 05:22 WBC RBC 4.28 L Hct MPV 10.7 H Neut % (Auto) Lymph % (Auto) Lymph # (Auto) Seg Neutrophils % 89 H Lymphocytes % 6 L Absolute Neutrophils Sodium Potassium Carbon Dioxide 21 L Anion Gap BUN 21 H Glucose 237 H Calcium 8.4 L Magnesium 3.1 H Direct Bilirubin 0.3 H GGT 300 H AST 83 H ALT 200 H Alkaline Phosphatase 149 H Lactate Dehydrogenase 521 H C-Reactive Protein 23.30 H NT-Pro-B Natriuret Pep Globulin Albumin/Globulin Ratio Triglycerides 206 H Procalcitonin Urine Protein Urine Urobilinogen Hyaline Casts Urine Mucus POC Troponin I 09/20/21 09/20/21 09/20/21 06:33 06:31 06:29 WBC RBC 4.15 L Hct 39.8 L MPV Neut % (Auto) Lymph % (Auto) Lymph # (Auto) Seg Neutrophils % 87 H Lymphocytes % 3 L Absolute Neutrophils Sodium Potassium 5.2 H Carbon Dioxide 21 L Anion Gap BUN Glucose 131 H Calcium 8.2 L Magnesium 2.8 H Direct Bilirubin GGT 212 H AST 83 H ALT 142 H Alkaline Phosphatase Lactate Dehydrogenase 529 H C-Reactive Protein 11.70 H NT-Pro-B Natriuret Pep Globulin Albumin/Globulin Ratio Triglycerides 253 H Procalcitonin Urine Protein Urine Urobilinogen Hyaline Casts Urine Mucus POC Troponin I 09/19/21 09/19/21 09/19/21 16:30 16:03 16:03 WBC RBC Hct MPV Neut % (Auto) Lymph % (Auto) Lymph # (Auto) Seg Neutrophils % Lymphocytes % Absolute Neutrophils Sodium 146 H Potassium Carbon Dioxide 21 L Anion Gap 23.0 H BUN Glucose 131 H Calcium Magnesium 2.6 H Direct Bilirubin GGT 252 H AST 120 H ALT 184 H Alkaline Phosphatase 134 H Lactate Dehydrogenase 642 H C-Reactive Protein 7.60 H NT-Pro-B Natriuret Pep Globulin Albumin/Globulin Ratio Triglycerides 353 H Procalcitonin Urine Protein 30 mg/dl A Urine Urobilinogen 2.0 e.u./dl A Hyaline Casts 6 H Urine Mucus Few A POC Troponin I 09/19/21 09/19/21 09/19/21 16:03 16:03 13:59 WBC RBC Hct MPV Neut % (Auto) Lymph % (Auto) Lymph # (Auto) Seg Neutrophils % Lymphocytes % Absolute Neutrophils Sodium Potassium Carbon Dioxide Anion Gap BUN Glucose Calcium Magnesium Direct Bilirubin GGT AST ALT Alkaline Phosphatase Lactate Dehydrogenase C-Reactive Protein NT-Pro-B Natriuret Pep 446.7 H Globulin Albumin/Globulin Ratio Triglycerides Procalcitonin 0.28 H Urine Protein Urine Urobilinogen Hyaline Casts Urine Mucus POC Troponin I 0 L 09/19/21 09/19/21 13:59 13:59 WBC 12.4 H RBC Hct MPV Neut % (Auto) 87.0 H Lymph % (Auto) 7.0 L Lymph # (Auto) 0.87 L Seg Neutrophils % Lymphocytes % Absolute Neutrophils 10.77 H Sodium Potassium Carbon Dioxide Anion Gap BUN Glucose 130 H Calcium Magnesium Direct Bilirubin GGT AST 109 H ALT 173 H Alkaline Phosphatase 124 H Lactate Dehydrogenase C-Reactive Protein NT-Pro-B Natriuret Pep Globulin 4.0 H Albumin/Globulin Ratio 0.9 L Triglycerides Procalcitonin Urine Protein Urine Urobilinogen Hyaline Casts Urine Mucus POC Troponin I Meds: Medications Acetaminophen (Acetaminophen 325 Mg Tablet) 650 mg PO Q6HP PRN; Protocol PRN Reason: Per Pain Protocol/Fever > 101 Last Admin: 09/21/21 01:51 Dose: 650 mg Documented by: Ceftriaxone Sodium (Ceftriaxone 1 Gm Vial) 1 gm IV Q24H [facility]; Protocol Last Admin: 09/21/21 10:32 Dose: 1 gm Documented by: Dexamethasone (Dexamethasone 10 Mg/Ml Vial) 20 mg IV DAILY [facility] Stop: 09/25/21 08:59 Last Admin: 09/21/21 08:02 Dose: 20 mg Documented by: Dexamethasone (Dexamethasone 10 Mg/Ml Vial) 10 mg IV DAILY [facility] Stop: 09/30/21 08:59 Enoxaparin Sodium (Enoxaparin 40 Mg/0.4 Ml Syringe) 40 mg SQ DAILY [facility] Last Admin: 09/21/21 08:02 Dose: 40 mg Documented by: Azithromycin 500 mg/ Dextrose 250 mls @ 250 mls/hr IV Q24H [facility]; Protocol Stop: 09/21/21 21:23 Last Infusion: 09/21/21 15:15 Dose: Infused Documented by: Dexmedetomidine HCl 400 mcg/ (Premix) 100 mls @ 5.264 mls/hr IV .Q19H PRN; Protocol PRN Reason: Anxiety Last Titration: 09/21/21 18:49 Dose: Infused Documented by: Sodium Chloride (Sodium Chloride 0.9%) 250 mls @ 20 mls/hr IV .[id number] [facility] Last Admin: 09/21/21 17:35 Dose: 20 mls/hr Documented by: Lactulose (Lactulose 20 Gm/30 Ml Oral.Comfort) 10 gm PO DAILYP PRN PRN Reason: Constipation Ondansetron HCl (Ondansetron 4 Mg/2 Ml Vial) 4 mg IV Q4HP PRN; Protocol PRN Reason: Nausea And Vomiting Senna (Sennosides 1 Tablet) 2 tab PO HSP PRN PRN Reason: Constipation Sodium Chloride (0.9 % Sodium Chloride 10 Ml Syringe) 10 ml IV Q8 [facility] Last Admin: 09/21/21 14:14 Dose: 10 ml Documented by: Tramadol HCl (Tramadol 50 Mg Tablet) 50 mg PO Q4HP PRN; Protocol PRN Reason: Pain Last Admin: 09/21/21 15:12 Dose: 50 mg Documented by: A/P Narrative A/P Narrative: Assessment: 50-year-old obese male admitted for acute hypoxic respiratory failure secondary to severe COVID-19 pneumonia. Symptom onset was 09/05/2021, diagnosis made by home test kit on 09/06/2021. The patient's symptoms progressed at home in spite of oral dexamethasone therapy. #Acute hypoxic respiratory failure #Severe ARDS likely secondary to COVID #Mid-range procalcitonin #Leukocytosis likely steroid induced #Elevated LFTs secondary to COVID illness #Obesity BMI 31 Plan -High dose Dexamethasone for severe ARDS. Unlikely to benefit from remdesivir at this point given the duration of illness. -Start Baricitinib for increasing inflammatory markers. -Oxygen supplementation, HHFNC preferred but may require CPAP especially at bedtime. -Empiric Ceftriaxone and Azithromycin. -Monitor respiratory status closely in PCU. -Daily CBC, inpatient panel, CRP. -Regular diet. 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 -Prone position as able. -DVT prophylaxis: Lovenox SQ -Code status: Full -Disposition: Will depend on clinical course. Time Spent With Patient Time: Total time spent is greater than 50% in coordination of care (as documented) at patient's floor/unit and/or counseling patient: QUALITY VTE Deep Vein Thrombosis/Pulmonary Embolism Present on Admission: No
[2021-09-22] MEDS: 0.9 % SODIUM CHLORIDE 10 ML SYRINGE IV SCH ×4 (03:15→21:53)
[2021-09-22] MEDS: traMADol 50 MG TABLET PO PRN ×3 (03:15→21:52)
[2021-09-22] MEDS: DEXMEDETOMIDINE 400 MCG in PREMIX 1 BAG IV PRN (03:30)
[2021-09-22] MEDS: 0.9 % SODIUM CHLORIDE 250 ML IV SCH (06:21)
[2021-09-22 06:29] LABS: Hemoglobin 13.9 g/dL (13.7-17.5); Mean Cell Volume 93.7 fL (80.0-100.0); Mean Corpuscular HGB Conc 34.8 g/dL (31.0-36.0); Mean Platelet Volume 11.2 fL (7.4-10.4); Platelet Count 216 K/mcL (140-440); RBC 4.27 M/mcL (4.63-6.08); Red Cell Distribution Width 11.8 % (11.5-14.5)
[2021-09-22 07:03] LABS: ALT/SGPT 198 U/L (<40); AST/SGOT 58 U/L (<40); Albumin 3.4 gm/dL (3.2-5.2); Albumin/Globulin Ratio 1.1 (1.0-2.3); Alkaline Phosphatase 138 U/L (39-117); Bilirubin,Direct < 0.2 mg/dL (0-0.3); Bilirubin,Total 0.4 mg/dL (0.1-1.0); Blood Urea Nitrogen 24 mg/dL (6-20); Calcium 8.5 mg/dL (8.6-10.4); Carbon Dioxide 21 mmol/L (22-30); Chloride 99 mmol/L (96-108); Globulin 3.1 gm/dL (2.2-3.7); Glomerular Filtration Rate 109; Glucose 224 mg/dL (70-105); Lactate Dehydrogenase 469 U/L (135-225); Phosphorous 4.4 mg/dL (2.5-4.5); Triglycerides 258 mg/dL (<150); Uric Acid 6.1 mg/dL (2.5-8.0)
[2021-09-22 07:57] LABS: Band Neutrophils % 1 % (0-10); Lymphocytes % 6 % (15-49); Monocytes % (Manual) 7 % (1-12); Platelet Estimate NORMAL (Normal); RBC Morphology NORMAL (Normal); Segmented Neutrophils % 86 % (38-78)
[2021-09-22] MEDS: cefTRIAXone 1 GM VIAL IV SCH (08:26)
[2021-09-22] MEDS: BARICITINIB 2 MG TABLET PO SCH (08:26)
[2021-09-22] MEDS: DEXAMETHASONE 10 MG/ML VIAL IV SCH (08:26)
[2021-09-22] MEDS: ENOXAPARIN 40 MG/0.4 ML SYRINGE SQ SCH (08:27)
[2021-09-22] MEDS ORDERED: DEXTROSE 31 GM ORAL.SUSP PO PRN (16:59)
[2021-09-22] MEDS ORDERED: DEXTROSE 50% 50 ML VIAL IV PRN (16:59)
--- NOTE | 2021-09-22 16:59 | Internal Med Progress Note ---
SUBJECTIVE Subjective Patient information: Note initiated : 09/22/21 at 4:57 pm Service Date, if different from initiated Date: [] Patient: Ruben Helm 50 y/o M admitted on 09/19/21 for shortness of breath, covid +. Chief Complaint: [] Interval history: Ruben Helm is a 50-year-old male with obesity, BMI 31, and no other significant past medical history who was diagnosed with COVID-19 on 09/06/2021 with a home test kit. The patient presented to the emergency department on 09/12/2021 and was discharged to home, his symptoms progressively worsened and he returned to the emergency department on 09/16/2021 and was discharged to home with dexamethasone and home oxygen due to bed capacity constraints in the hospital. During that visit, a CT PE protocol was negative for pulmonary embolism and did show typical COVID-19 infiltrates. The patient returned to the emergency department on 09/19/2021 for progressively worsening symptoms and found to be severely hypoxic requiring heated and humidified high flow nasal cannula with an FiO2 of 80. Shows moderate vague patchy infiltrates in both the mid and lower lung dinero bilaterally. Hospital medicine was asked to admit the patient for further management. 09/20 Requiring HHFNC with flow of 30, FIO2 80. Increased Dexamethasone to 20 mg IV daily for severe ARDS. CRP trending up. BANDAR negative for COVID and Influenza A+B. 09/21 Increasing CRP, started Baricitinib. PANTHER resulted as not detected. Clinically this appears to be ARDS secondary to a COVID illness that started around 09/04/21. Started Precedex for anxiety due to dyspnea. 09/22 Oxygenation improved after proning, continues on HHFNC. Feeling better today, CRP downtrending. Trial of Atarax prn for anxiety. Physical exam Head: Atraumatic, normal inspection. Eyes: normal appearance, no scleral icterus. Neck: full ROM Respiratory: Respiratory rate in the mid teens, HHFNC, diffuse bilateral fine crackles. Cardiovascular: normal rate and rhythm, S1, S2. GI/Abdominal: Obesely distended, soft, nontender, no guarding. Extremities: full range of motion, nontender. Neurological: CN II-XII intact, intact motor, intact sensation. Psychiatric: normal mood. Skin: warm, normal color Constitutional Vitals: Vital Signs Temp Pulse Resp BP Pulse Ox 98.2 F 54 L 16 146/82 91 09/22/21 16:01 09/22/21 10:17 09/22/21 16:47 09/22/21 16:01 09/22/21 16:47 Period Temp Pulse Resp BP Sys/Reyes Pulse Ox Last 24 Hr 97.3 F-98.6 F 54-54 15-26 100-186/72-103 88-97 Intake and Output 09/22/21 09/22/21 09/22/21 05:59 13:59 21:59 Intake Total 480 1599 259 Output Total 775 950 Balance -295 1599 691 Intake & Output: Intake & Output 09/22/21 09/22/21 09/22/21 05:59 13:59 21:59 Intake Total 480 1599 259 Output Total 775 950 Balance -295 1599 691 Intake: Nourishment/Supplement quantity 477 (ml) IV 282 259 Sodium Chloride 0.9% 250 ml @ 250 209 20 mls/hr IV .[id number] [facility] Rx#: [id number] Precedex 400 Mcg/100 ml 32 50 Dextrose 400 Mcg In Premix 1 Bag @ 0.2 MCG/KG/HR 5.264 mls/ hr IV .Q19H [facility]N Rx#:[id number] Oral 480 840 Output: Void Amount 775 950 Other: Meal Lunch Percent of Meal Consumed 100% Feeding Ability Independent Nourishment/Supplement name Ensure Urine Appearance Clear Clear Urine Color Bright Yellow Pale Urine Odor Normal Normal Stool Size Moderate Moderate Stool Color Brown Brown Stool Consistency Soft Soft Loose Loose # Bowel Movements 1 1 OBJ DATA Labs CBC & Chem 7: 09/22/21 05:26 09/22/21 05:21 Labs: Abnormal Lab Results 09/22/21 09/22/21 09/22/21 05:26 05:22 05:21 WBC 12.0 H RBC 4.27 L Hct 40.0 L MPV 11.2 H Seg Neutrophils % 86 H Lymphocytes % 6 L Sodium Potassium Carbon Dioxide 21 L Anion Gap BUN 24 H Glucose 224 H Calcium 8.5 L Magnesium Direct Bilirubin GGT 249 H AST 58 H ALT 198 H Alkaline Phosphatase 138 H Lactate Dehydrogenase 469 H C-Reactive Protein 12.30 H Triglycerides 258 H Procalcitonin Urine Protein Urine Urobilinogen Hyaline Casts Urine Mucus 09/21/21 09/21/21 09/21/21 05:23 05:23 05:22 WBC RBC 4.28 L Hct MPV 10.7 H Seg Neutrophils % 89 H Lymphocytes % 6 L Sodium Potassium Carbon Dioxide 21 L Anion Gap BUN 21 H Glucose 237 H Calcium 8.4 L Magnesium 3.1 H Direct Bilirubin 0.3 H GGT 300 H AST 83 H ALT 200 H Alkaline Phosphatase 149 H Lactate Dehydrogenase 521 H C-Reactive Protein 23.30 H Triglycerides 206 H Procalcitonin Urine Protein Urine Urobilinogen Hyaline Casts Urine Mucus 09/20/21 09/20/21 09/20/21 06:33 06:31 06:29 WBC RBC 4.15 L Hct 39.8 L MPV Seg Neutrophils % 87 H Lymphocytes % 3 L Sodium Potassium 5.2 H Carbon Dioxide 21 L Anion Gap BUN Glucose 131 H Calcium 8.2 L Magnesium 2.8 H Direct Bilirubin GGT 212 H AST 83 H ALT 142 H Alkaline Phosphatase Lactate Dehydrogenase 529 H C-Reactive Protein 11.70 H Triglycerides 253 H Procalcitonin Urine Protein Urine Urobilinogen Hyaline Casts Urine Mucus 09/19/21 09/19/21 09/19/21 16:30 16:03 16:03 WBC RBC Hct MPV Seg Neutrophils % Lymphocytes % Sodium 146 H Potassium Carbon Dioxide 21 L Anion Gap 23.0 H BUN Glucose 131 H Calcium Magnesium 2.6 H Direct Bilirubin GGT 252 H AST 120 H ALT 184 H Alkaline Phosphatase 134 H Lactate Dehydrogenase 642 H C-Reactive Protein 7.60 H Triglycerides 353 H Procalcitonin Urine Protein 30 mg/dl A Urine Urobilinogen 2.0 e.u./dl A Hyaline Casts 6 H Urine Mucus Few A 09/19/21 16:03 WBC RBC Hct MPV Seg Neutrophils % Lymphocytes % Sodium Potassium Carbon Dioxide Anion Gap BUN Glucose Calcium Magnesium Direct Bilirubin GGT AST ALT Alkaline Phosphatase Lactate Dehydrogenase C-Reactive Protein Triglycerides Procalcitonin 0.28 H Urine Protein Urine Urobilinogen Hyaline Casts Urine Mucus Meds: Medications Acetaminophen (Acetaminophen 325 Mg Tablet) 650 mg PO Q6HP PRN; Protocol PRN Reason: Per Pain Protocol/Fever > 101 Last Admin: 09/21/21 01:51 Dose: 650 mg Documented by: Ceftriaxone Sodium (Ceftriaxone 1 Gm Vial) 1 gm IV Q24H [facility]; Protocol Last Admin: 09/22/21 08:26 Dose: 1 gm Documented by: Dexamethasone (Dexamethasone 10 Mg/Ml Vial) 20 mg IV DAILY [facility] Stop: 09/25/21 08:59 Last Admin: 09/22/21 08:26 Dose: 20 mg Documented by: Dexamethasone (Dexamethasone 10 Mg/Ml Vial) 10 mg IV DAILY [facility] Stop: 09/30/21 08:59 Enoxaparin Sodium (Enoxaparin 40 Mg/0.4 Ml Syringe) 40 mg SQ DAILY [facility] Last Admin: 09/22/21 08:27 Dose: 40 mg Documented by: Hydroxyzine HCl (Hydroxyzine 25 Mg Tablet) 25 mg PO TIDP PRN PRN Reason: Anxiety Dexmedetomidine HCl 400 mcg/ (Premix) 100 mls @ 5.264 mls/hr IV .Q19H PRN; Protocol PRN Reason: Anxiety Last Titration: 09/22/21 15:55 Dose: 0 mcg/kg/hr, 0 mls/hr Documented by: Sodium Chloride (Sodium Chloride 0.9%) 250 mls @ 20 mls/hr IV .[id number] [facility] Last Infusion: 09/22/21 16:47 Dose: 0 mls/hr Documented by: Lactulose (Lactulose 20 Gm/30 Ml Oral.Comfort) 10 gm PO DAILYP PRN PRN Reason: Constipation Ondansetron HCl (Ondansetron 4 Mg/2 Ml Vial) 4 mg IV Q4HP PRN; Protocol PRN Reason: Nausea And Vomiting Senna (Sennosides 1 Tablet) 2 tab PO HSP PRN PRN Reason: Constipation Sodium Chloride (0.9 % Sodium Chloride 10 Ml Syringe) 10 ml IV Q8 [facility] Last Admin: 09/22/21 15:53 Dose: 10 ml Documented by: Tramadol HCl (Tramadol 50 Mg Tablet) 50 mg PO Q4HP PRN; Protocol PRN Reason: Pain Last Admin: 09/22/21 08:27 Dose: 50 mg Documented by: A/P Narrative A/P Narrative: Assessment: 50-year-old obese male admitted for acute hypoxic respiratory failure secondary to severe COVID-19 pneumonia. Symptom onset was 09/05/2021, diagnosis made by home test kit on 09/06/2021. The patient's symptoms progressed at home in spite of oral dexamethasone therapy. #Acute hypoxic respiratory failure #Severe ARDS likely secondary to COVID #Mid-range procalcitonin #Leukocytosis likely steroid induced #Elevated LFTs secondary to COVID illness #Obesity BMI 31 Plan -High dose Dexamethasone for severe ARDS. -Continued Baricitinib daily. -Unlikely to benefit from remdesivir at this point in this illness. -Oxygen supplementation, preferably with HHFNC if tolerated, weaning to nasal canula. -Empiric Ceftriaxone and Azithromycin. -Discontinue Precedex infusion prn for anxiety. -Monitor respiratory status closely in PCU. -Daily CBC, inpatient panel, CRP. -Regular diet. 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 -Encourage prone position as able. -DVT prophylaxis: Lovenox SQ -Code status: Full -Disposition: Will depend on clinical course. Time Spent With Patient Time: Total time spent is greater than 50% in coordination of care (as documented) at patient's floor/unit and/or counseling patient: QUALITY VTE Deep Vein Thrombosis/Pulmonary Embolism Present on Admission: No
[2021-09-22] MEDS: INSULIN LISPRO 1 UNIT/0.01 ML UNIT SQ SCH ×2 (17:36→21:52)
[2021-09-22] MEDS: hydrOXYzine 25 MG TABLET PO PRN (21:52)
[2021-09-22] MEDS ORDERED: DEXMEDETOMIDINE 100 ML IV ONE (23:20)
[2021-09-22] MEDS: DEXMEDETOMIDINE 400 MCG in PREMIX 1 BAG IV SCH (23:29)
[2021-09-23] MEDS: 0.9 % SODIUM CHLORIDE 10 ML SYRINGE IV SCH ×3 (04:40→21:47)
[2021-09-23 06:42] LABS: Hematocrit 41.4 % (40.1-51.0); Hemoglobin 14.4 g/dL (13.7-17.5); Mean Cell Volume 93.7 fL (80.0-100.0); Mean Corpuscular HGB Conc 34.8 g/dL (31.0-36.0); Mean Platelet Volume 11.2 fL (7.4-10.4); Platelet Count 235 K/mcL (140-440); RBC 4.42 M/mcL (4.63-6.08); Red Cell Distribution Width 11.6 % (11.5-14.5); WBC 11.3 K/mcL (4.5-11.0)
[2021-09-23 07:16] LABS: ALT/SGPT 537 U/L (<40); AST/SGOT 184 U/L (<40); Albumin 3.5 gm/dL (3.2-5.2); Albumin/Globulin Ratio 1.1 (1.0-2.3); Alkaline Phosphatase 155 U/L (39-117); Bilirubin,Direct < 0.2 mg/dL (0-0.3); Bilirubin,Total 0.4 mg/dL (0.1-1.0); Blood Urea Nitrogen 26 mg/dL (6-20); Calcium 8.8 mg/dL (8.6-10.4); Carbon Dioxide 23 mmol/L (22-30); Chloride 97 mmol/L (96-108); Globulin 3.2 gm/dL (2.2-3.7); Glomerular Filtration Rate 109; Glucose 167 mg/dL (70-105); Lactate Dehydrogenase 455 U/L (135-225); Phosphorous 4.7 mg/dL (2.5-4.5); Triglycerides 222 mg/dL (<150); Uric Acid 6.4 mg/dL (2.5-8.0)
[2021-09-23] MEDS: DEXAMETHASONE 10 MG/ML VIAL IV SCH (08:10)
[2021-09-23] MEDS: ENOXAPARIN 40 MG/0.4 ML SYRINGE SQ SCH (08:11)
[2021-09-23] MEDS: cefTRIAXone 1 GM VIAL IV SCH (08:11)
[2021-09-23] MEDS: traMADol 50 MG TABLET PO PRN (08:11)
[2021-09-23] MEDS: INSULIN LISPRO 1 UNIT/0.01 ML UNIT SQ SCH ×4 (08:12→21:10)
[2021-09-23] MEDS: hydrOXYzine 25 MG TABLET PO PRN (08:12)
[2021-09-23] MEDS: BARICITINIB 2 MG TABLET PO SCH (08:13)
[2021-09-23 08:41] LABS: Lymphocytes % 9 % (15-49); Monocytes % (Manual) 5 % (1-12); Platelet Estimate NORMAL (Normal); RBC Morphology NORMAL (Normal); Segmented Neutrophils % 86 % (38-78)
[2021-09-23 08:56] LABS: Hepatitis C Virus Antibody Non-Reactive (Non-Reactive)
[2021-09-23] MEDS: DIAZEPAM 2 MG TABLET PO PRN ×3 (10:56→22:51)
--- NOTE | 2021-09-23 11:48 | Internal Med Progress Note ---
SUBJECTIVE Subjective Patient information: Note initiated : 09/23/21 at 11:44 am Service Date, if different from initiated Date: [] Patient: Ruben Helm a 50 y/o M admitted on 09/19/21 for shortness of breath, covid +. Chief Complaint: [] Interval history: Ruben Helm is a 50-year-old male with obesity, BMI 31, and no other significant past medical history who was diagnosed with COVID-19 on 09/06/2021 with a home test kit. The patient presented to the emergency department on 09/12/2021 and was discharged to home, his symptoms progressively worsened and he returned to the emergency department on 09/16/2021 and was discharged to home with dexamethasone and home oxygen due to bed capacity constraints in the hospital. During that visit, a CT PE protocol was negative for pulmonary embolism and did show typical COVID-19 infiltrates. The patient returned to the emergency department on 09/19/2021 for progressively worsening symptoms and found to be severely hypoxic requiring heated and humidified high flow nasal cannula with an FiO2 of 80. Show s moderate vague patchy infiltrates in both the mid and lower lung dinero bilaterally. Hospital medicine was asked to admit the patient for further management. 09/20 Requiring HHFNC with flow of 30, FIO2 80. Increased Dexamethasone to 20 mg IV daily for severe ARDS. CRP trending up. BANDAR negative for COVID and Influenza A+B. 09/21 Increasing CRP, started Baricitinib. PANTHER resulted as not detected. Clinically this appears to be ARDS secondary to a COVID illness that started around 09/04/21. Started Precedex for anxiety due to dyspnea. 09/22 Oxygenation improved after proning, continues on HHFNC. Feeling better today, CRP downtrending. Trial of Atarax prn for anxiety. 09/23 Atarax did not suffice for anxiety, went back on Precedex infusion overnight for anxiety. This morning started Valium prn for anxiety. Overall oxygenation has improved. Oxygen saturation improves when the patient is asleep and anxiety is controlled. LFT trending up, ordered a RUQ ultrasound and hepatitis b and c screening. Physical exam Head: Atraumatic, normal inspection. Eyes: normal appearance, no scleral icterus. Neck: full ROM Respiratory: Respiratory rate in the mid teens, HHFNC, diffuse bilateral fine crackles. Cardiovascular: normal rate and rhythm, S1, S2. GI/Abdominal: Obesely distended, soft, nontender, no guarding. Extremities: full range of motion, nontender. Neurological: CN II-XII intact, intact motor, intact sensation. Psychiatric: normal mood. Skin: warm, normal color Constitutional Vitals: Vital Signs Temp Pulse Resp BP Pulse Ox 97.4 F 54 L 29 H 105/74 91 09/23/21 11:02 09/23/21 10:08 09/23/21 11:02 09/23/21 11:02 09/23/21 11:02 Period Temp Pulse Resp BP Sys/Reyes Pulse Ox Last 24 Hr 97.2 F-98.9 F 54-54 13-31 100-187/67-130 88-98 Intake and Output 09/22/21 09/23/21 09/23/21 21:59 05:59 13:59 Intake Total 976 45 691 Output Total 7179 760 2124 Balance -474 255 -709 Weight 104.19 kg 104.19 kg Patient Weight 09/24/21 05:59 Weight 104.19 kg Intake & Output: Intake & Output 09/22/21 09/23/21 09/23/21 21:59 05:59 13:59 Intake Total 976 45 691 Output Total 1783 296 5943 Balance -474 -255 -709 Weight 104.19 kg 104.19 kg Intake: Nourishment/Supplement quantity 237 240 (ml) IV 259 45 51 Sodium Chloride 0.9% 250 ml @ 209 20 mls/hr IV .[id number] [facility] Rx#: [id number] Precedex 400 Mcg/100 ml 50 45 51 Dextrose 400 Mcg In Premix 1 Bag @ 0.2 MCG/KG/HR 5.21 mls/hr IV .[id number] [facility] Rx#:[id number] Oral 480 400 Output: Void Amount 1106 921 5938 Other: Meal Dinner Breakfast Percent of Meal Consumed 100% 100% Feeding Ability Independent Nourishment/Supplement name Ensure Urine Appearance Clear Clear Urine Color Pale Bright Yellow Urine Odor Normal Stool Size Moderate Small Stool Color Brown Brown Stool Consistency Liquid Loose Loose # Bowel Movements 1 1 OBJ DATA Labs CBC & Chem 7: 09/23/21 05:50 09/23/21 05:50 Labs: Abnormal Lab Results 0109/23/21 09/22/21 05:50 05:50 05:26 WBC 11.3 H 12.0 H RBC 4.42 L 4.27 L Hct 40.0 L MPV 11.2 H 11.2 H Seg Neutrophils % 86 H 86 H Lymphocytes % 9 L 6 L Carbon Dioxide BUN 26 H Glucose 167 H Calcium Phosphorus 4.7 H Magnesium Direct Bilirubin GGT 307 H AST 184 H ALT 537 H Alkaline Phosphatase 155 H Lactate Dehydrogenase 455 H C-Reactive Protein Triglycerides 222 H 09/22/21 09/22/21 09/21/21 05:22 05:21 05:23 WBC RBC Hct MPV Seg Neutrophils % Lymphocytes % Carbon Dioxide 21 L BUN 24 H Glucose 224 H Calcium 8.5 L Phosphorus Magnesium Direct Bilirubin GGT 249 H AST 58 H ALT 198 H Alkaline Phosphatase 138 H Lactate Dehydrogenase 469 H C-Reactive Protein 12.30 H 23.30 H Triglycerides 258 H 09/21/21 09/21/21 05:23 05:22 WBC RBC 4.28 L Hct MPV 10.7 H Seg Neutrophils % 89 H Lymphocytes % 6 L Carbon Dioxide 21 L BUN 21 H Glucose 237 H Calcium 8.4 L Phosphorus Magnesium 3.1 H Direct Bilirubin 0.3 H GGT 300 H AST 83 H ALT 200 H Alkaline Phosphatase 149 H Lactate Dehydrogenase 521 H C-Reactive Protein Triglycerides 206 H Meds: Medications Acetaminophen (Acetaminophen 325 Mg Tablet) 650 mg PO Q6HP PRN; Protocol PRN Reason: Per Pain Protocol/Fever > 101 Last Admin: 09/21/21 01:51 Dose: 650 mg Documented by: Ceftriaxone Sodium (Ceftriaxone 1 Gm Vial) 1 gm IV Q24H [facility]; Protocol Last Admin: 09/23/21 08:11 Dose: 1 gm Documented by: Dexamethasone (Dexamethasone 10 Mg/Ml Vial) 20 mg IV DAILY [facility] Stop: 09/25/21 08:59 Last Admin: 09/23/21 08:10 Dose: 20 mg Documented by: Dexamethasone (Dexamethasone 10 Mg/Ml Vial) 10 mg IV DAILY [facility] Stop: 09/30/21 08:59 Dextrose (Dextrose 50% 50 Ml Vial) 0 ml IV UD PRN PRN Reason: Hypoglycemia Diagnostic Test (Pha) (Accu-Chek 1 Each Strip) 1 each FS ACHS [facility] Last Admin: 09/23/21 11:17 Dose: 1 each Documented by: Diazepam (Diazepam 2 Mg Tablet) 2 mg PO TIDP PRN PRN Reason: anxiety Last Admin: 09/23/21 10:56 Dose: 2 mg Documented by: Enoxaparin Sodium (Enoxaparin 40 Mg/0.4 Ml Syringe) 40 mg SQ DAILY [facility] Last Admin: 09/23/21 08:11 Dose: 40 mg Documented by: Glucose (Dextrose 31 Gm Oral.Susp) 15 gm PO PRN PRN PRN Reason: Hypoglycemia Dexmedetomidine HCl 400 mcg/ (Premix) 100 mls @ 5.21 mls/hr IV .[id number] [facility]; Protocol Last Titration: 09/23/21 11:17 Dose: Infused Documented by: Insulin Human Lispro (Insulin Lispro 1 Unit/0.01 Ml Unit) 0 unit SQ ACHS [facility]; Protocol Last Admin: 09/23/21 08:12 Dose: 1 units Documented by: Lactulose (Lactulose 20 Gm/30 Ml Oral.Comfort) 10 gm PO DAILYP PRN PRN Reason: Constipation Ondansetron HCl (Ondansetron 4 Mg/2 Ml Vial) 4 mg IV Q4HP PRN; Protocol PRN Reason: Nausea And Vomiting Senna (Sennosides 1 Tablet) 2 tab PO HSP PRN PRN Reason: Constipation Sodium Chloride (0.9 % Sodium Chloride 10 Ml Syringe) 10 ml IV Q8 [facility] Last Admin: 09/23/21 04:40 Dose: 10 ml Documented by: Tramadol HCl (Tramadol 50 Mg Tablet) 50 mg PO Q4HP PRN; Protocol PRN Reason: Pain Last Admin: 09/23/21 08:11 Dose: 50 mg Documented by: A/P Narrative A/P Narrative: Assessment: 50-year-old obese male admitted for acute hypoxic respiratory failure secondary to severe COVID-19 pneumonia. Symptom onset was 09/05/2021, diagnosis made by home test kit on 09/06/2021. The patient's symptoms progressed at home in spite of oral dexamethasone therapy. #Acute hypoxic respiratory failure #Severe ARDS likely secondary to COVID #Mid-range procalcitonin #Leukocytosis likely steroid induced #Elevated LFTs likely secondary to COVID illness #Obesity BMI 31 Plan -High dose Dexamethasone for severe ARDS. -Continued Baricitinib daily. -Unlikely to benefit from remdesivir at this point in this illness. -Oxygen supplementation, preferably with HHFNC if tolerated, weaning to nasal canula. -Empiric Ceftriaxone and Azithromycin. -Valium prn for anxiety. -Wean off Precedex infusion prn for anxiety. -Monitor respiratory status closely in PCU. -Daily CBC, inpatient panel, CRP. -RUQ ultrasound for elevated LFT -Hepatitis B surface antigen. -Hepatitis C ab w/ reflect PCR. -Regular diet. -quality assurance monitor final. -Encourage prone position as able. -DVT prophylaxis: Lovenox SQ -Code status: Full -Disposition: Will depend on clinical course. Time Spent With Patient Time: Total time spent is greater than 50% in coordination of care (as documented) at patient's floor/unit and/or counseling patient: QUALITY VTE Deep Vein Thrombosis/Pulmonary Embolism Present on Admission: No
[2021-09-23] MEDS ORDERED: REMDESIVIR 200 MG in 0.9 % SODIUM CHLORIDE 250 ML IV ONE (14:12)
[2021-09-23] MEDS ORDERED: REMDESIVIR 100 MG in 0.9 % SODIUM CHLORIDE 250 ML IV SCH (14:15)
--- NOTE | 2021-09-23 14:20 | Internal Med Progress Note ---
SUBJECTIVE Subjective Patient information: Note initiated : 09/23/21 at 2:09 pm Service Date, if different from initiated Date: [] Patient: Ruben Helm a 50 y/o M admitted on 09/19/21 for shortness of breath, covid +. Chief Complaint: [] Interval history: Ruben Helm is a 50-year-old male with obesity, BMI 31, and no other significant past medical history who was diagnosed with COVID-19 on 09/06/2021 with a home test kit. The patient presented to the emergency department on 09/12/2021 and was discharged to home, his symptoms progressively worsened and he returned to the emergency department on 09/16/2021 and was discharged to home with dexamethasone and home oxygen due to bed capacity constraints in the hospital. During that visit, a CT PE protocol was negative for pulmonary embolism and did show typical COVID-19 infiltrates. The patient returned to the emergency department on 09/19/2021 for progressively worsening symptoms and found to be severely hypoxic requiring heated and humidified high flow nasal cannula with an FiO2 of 80. Shows moderate vague patchy infiltrates in both the mid and lower lung dinero bilaterally. Hospital medicine was asked to admit the patient for further management. 09/20 Requiring HHFNC with flow of 30, FIO2 80. Increased Dexamethasone to 20 mg IV daily for severe ARDS. CRP trending up. BANDAR negative for COVID and Influenza A+B. 09/21 Increasing CRP, started Baricitinib. PANTHER resulted as not detected. Clinically this appears to be ARDS secondary to a COVID illness that started around 09/04/21. Started Precedex for anxiety due to dyspnea. 09/22 Oxygenation improved after proning, continues on HHFNC. Feeling better today, CRP downtrending. Trial of Atarax prn for anxiety. 09/23 Atarax did not suffice for anxiety, went back on Precedex infusion overnight for anxiety. This morning started Valium prn for anxiety. Overall oxygenation has improved. Oxygen saturation improves when the patient is asleep and anxiety is controlled. LFT trending up, ordered a RUQ ultrasound and hepatitis b and c screening. 09/24 Constitutional Vitals: Vital Signs Temp Pulse Resp BP Pulse Ox 97.4 F 54 L 20 98/69 96 09/23/21 11:02 09/23/21 10:08 09/23/21 13:15 09/23/21 13:15 09/23/21 13:15 Period Temp Pulse Resp BP Sys/Reyes Pulse Ox Last 24 Hr 97.2 F-98.9 F 54-54 13-31 98-187/67-130 88-98 Intake and Output 09/23/21 09/23/21 09/23/21 05:59 13:59 21:59 Intake Total 45 691 Output Total 300 1400 Balance -255 -709 Weight 104.19 kg Patient Weight 09/24/21 05:59 Weight 104.19 kg Intake & Output: Intake & Output 09/23/21 09/23/21 09/23/21 05:59 13:59 21:59 Intake Total 45 691 Output Total 300 1400 Balance -255 -709 Weight 104.19 kg Intake: Nourishment/Supplement quantity 240 (ml) IV 45 51 Precedex 400 Mcg/100 ml 45 51 Dextrose 400 Mcg In Premix 1 Bag @ 0.2 MCG/KG/HR 5.21 mls/hr IV .[id number] [facility] Rx#:[id number] Oral 400 Output: Void Amount 300 1400 Other: Meal Breakfast Percent of Meal Consumed 100% Urine Appearance Clear Urine Color Bright Yellow Stool Size Small Stool Color Brown Stool Consistency Loose # Bowel Movements 1 Exam: General: Alert, Awake, No acute Distress, obese Eyes/N/T: EOMI, Head/Neck: neck supple, CV: RRR, No murmurs, Pulm: diffuse rales b/l, no wheezing Abd: soft, nontender, +BS x4 Ext: no clubbing/cyanosis/edema Neuro: Alert, no focal deficits, moves all extremities, Skin: warm/dry OBJ DATA Labs CBC & Chem 7: 09/23/21 05:50 09/23/21 05:50 Labs: Abnormal Lab Results 09/23/21 09/23/21 09/22/21 05:50 05:50 05:26 WBC 11.3 H 12.0 H RBC 4.42 L 4.27 L Hct 40.0 L MPV 11.2 H 11.2 H Seg Neutrophils % 86 H 86 H Lymphocytes % 9 L 6 L Carbon Dioxide BUN 26 H Glucose 167 H Calcium Phosphorus 4.7 H Magnesium Direct Bilirubin GGT 307 H AST 184 H ALT 537 H Alkaline Phosphatase 155 H Lactate Dehydrogenase 455 H C-Reactive Protein Triglycerides 222 H 09/22/21 09/22/21 09/21/21 05:22 05:21 05:23 WBC RBC Hct MPV Seg Neutrophils % Lymphocytes % Carbon Dioxide 21 L BUN 24 H Glucose 224 H Calcium 8.5 L Phosphorus Magnesium Direct Bilirubin GGT 249 H AST 58 H ALT 198 H Alkaline Phosphatase 138 H Lactate Dehydrogenase 469 H C-Reactive Protein 12.30 H 23.30 H Triglycerides 258 H 09/21/21 09/21/21 05:23 05:22 WBC RBC 4.28 L Hct MPV 10.7 H Seg Neutrophils % 89 H Lymphocytes % 6 L Carbon Dioxide 21 L BUN 21 H Glucose 237 H Calcium 8.4 L Phosphorus Magnesium 3.1 H Direct Bilirubin 0.3 H GGT 300 H AST 83 H ALT 200 H Alkaline Phosphatase 149 H Lactate Dehydrogenase 521 H C-Reactive Protein Triglycerides 206 H Meds: Medications Acetaminophen (Acetaminophen 325 Mg Tablet) 650 mg PO Q6HP PRN; Protocol PRN Reason: Per Pain Protocol/Fever > 101 Last Admin: 09/21/21 01:51 Dose: 650 mg Documented by: Ceftriaxone Sodium (Ceftriaxone 1 Gm Vial) 1 gm IV Q24H [facility]; Protocol Last Admin: 09/23/21 08:11 Dose: 1 gm Documented by: Dexamethasone (Dexamethasone 10 Mg/Ml Vial) 20 mg IV DAILY [facility] Stop: 09/25/21 08:59 Last Admin: 09/23/21 08:10 Dose: 20 mg Documented by: Dexamethasone (Dexamethasone 10 Mg/Ml Vial) 10 mg IV DAILY [facility] Stop: 09/30/21 08:59 Dextrose (Dextrose 50% 50 Ml Vial) 0 ml IV UD PRN PRN Reason: Hypoglycemia Diagnostic Test (Pha) (Accu-Chek 1 Each Strip) 1 each FS ACHS [facility] Last Admin: 09/23/21 11:17 Dose: 1 each Documented by: Diazepam (Diazepam 2 Mg Tablet) 2 mg PO TIDP PRN PRN Reason: anxiety Last Admin: 09/23/21 10:56 Dose: 2 mg Documented by: Enoxaparin Sodium (Enoxaparin 40 Mg/0.4 Ml Syringe) 40 mg SQ DAILY [facility] Last Admin: 09/23/21 08:11 Dose: 40 mg Documented by: Glucose (Dextrose 31 Gm Oral.Susp) 15 gm PO PRN PRN PRN Reason: Hypoglycemia Dexmedetomidine HCl 400 mcg/ (Premix) 100 mls @ 5.21 mls/hr IV .[id number] [facility]; Protocol Last Titration: 09/23/21 11:17 Dose: Infused Documented by: Insulin Human Lispro (Insulin Lispro 1 Unit/0.01 Ml Unit) 0 unit SQ ACHS [facility]; Protocol Last Admin: 09/23/21 12:35 Dose: 2 units Documented by: Lactulose (Lactulose 20 Gm/30 Ml Oral.Comfort) 10 gm PO DAILYP PRN PRN Reason: Constipation Ondansetron HCl (Ondansetron 4 Mg/2 Ml Vial) 4 mg IV Q4HP PRN; Protocol PRN Reason: Nausea And Vomiting Senna (Sennosides 1 Tablet) 2 tab PO HSP PRN PRN Reason: Constipation Sodium Chloride (0.9 % Sodium Chloride 10 Ml Syringe) 10 ml IV Q8 [facility] Last Admin: 09/23/21 12:36 Dose: 10 ml Documented by: Tramadol HCl (Tramadol 50 Mg Tablet) 50 mg PO Q4HP PRN; Protocol PRN Reason: Pain Last Admin: 09/23/21 08:11 Dose: 50 mg Documented by: A/P Narrative A/P Narrative: A: #Covid PNA w/Severe ARDS: -elevated pct #Acute hypoxic respiratory failure: -on vapotherm #Leukocytosis: likely steroid induced #Transaminitis: likely 2/2 viral COVID illness. -liver U/S showing #Obesity: BMI 31 Plan: -High dose Dexamethasone for severe ARDS / Baricitinib / -Oxygen supplementation, preferably with HHFNC if tolerated, weaning to nasal canula. -Empiric Ceftriaxone / Azithromycin -Valium prn for anxiety -Wean off Precedex infusion prn for anxiety -Hepatitis B surface antigen /Hepatitis C ab w/ reflect PCR. liver u/s -Planning/mobilization/OOB to chair -pt/ot -ppx: Lovenox SQ Code status: Placement Manager Spent With Patient Time: Total time spent is greater than 50% in coordination of care (as documented) at patient's floor/unit and/or counseling patient: QUALITY VTE Deep Vein Thrombosis/Pulmonary Embolism Present on Admission: No
--- NOTE | 2021-09-23 17:00 | Ultrasound Report ---
CLINICAL INFORMATION: Limited LFTs COMPARISON: None. FINDINGS: Liver is normal in size and echotexture without focal lesion. Gallbladder and bile ducts are normal CBD is 3 mm. Pancreas was not well visualized no gross abnormality. No free fluid. IMPRESSION: Liver, gallbladder and bile ducts unremarkable. Pancreas not visualized Interpreted and Authenticated by: Humza Greene 09/23/21
[2021-09-23] MEDS: DEXMEDETOMIDINE 400 MCG in PREMIX 1 BAG IV SCH (18:33)
[2021-09-24] MEDS: DEXMEDETOMIDINE 400 MCG in PREMIX 1 BAG IV SCH ×2 (00:51→15:34)
[2021-09-24] MEDS: 0.9 % SODIUM CHLORIDE 10 ML SYRINGE IV SCH ×3 (04:38→22:10)
[2021-09-24 06:53] LABS: Hematocrit 42.3 % (40.1-51.0); Hemoglobin 14.4 g/dL (13.7-17.5); Mean Cell Volume 95.1 fL (80.0-100.0); Platelet Count 279 K/mcL (140-440); RBC 4.45 M/mcL (4.63-6.08); Red Cell Distribution Width 11.9 % (11.5-14.5); WBC 11.3 K/mcL (4.5-11.0)
[2021-09-24 07:36] LABS: ALT/SGPT 595 U/L (<40); AST/SGOT 177 U/L (<40); Albumin 3.7 gm/dL (3.2-5.2); Albumin/Globulin Ratio 1.2 (1.0-2.3); Alkaline Phosphatase 146 U/L (39-117); Bilirubin,Direct < 0.2 mg/dL (0-0.3); Bilirubin,Total 0.5 mg/dL (0.1-1.0); Blood Urea Nitrogen 28 mg/dL (6-20); Calcium 8.7 mg/dL (8.6-10.4); Carbon Dioxide 22 mmol/L (22-30); Chloride 98 mmol/L (96-108); Glomerular Filtration Rate 103; Glucose 168 mg/dL (70-105); Lactate Dehydrogenase 422 U/L (135-225); Phosphorous 4.7 mg/dL (2.5-4.5); Triglycerides 199 mg/dL (<150); Uric Acid 6.9 mg/dL (2.5-8.0)
--- NOTE | 2021-09-24 08:12 | Internal Med Progress Note ---
SUBJECTIVE Subjective Patient information: Note initiated : 09/24/21 at 8:05 am Service Date, if different from initiated Date: [] Patient: Ruben Helm a 50 y/o M admitted on 09/19/21 for shortness of breath, covid +. Chief Complaint: [] Interval history: Ruben Helm is a 50-year-old male with obesity, BMI 31, and no other significant past medical history who was diagnosed with COVID-19 on 09/06/2021 with a home test kit. The patient presented to the emergency department on 09/12/2021 and was discharged to home, his symptoms progressively worsened and he returned to the emergency department on 09/16/2021 and was discharged to home with dexamethasone and home oxygen due to bed capacity constraints in the hospital. During that visit, a CT PE protocol was negative for pulmonary embolism and did show typical COVID-19 infiltrates. The patient returned to the emergency department on 09/19/2021 for progressively worsening symptoms and found to be severely hypoxic requiring heated and humidified high flow nasal cannula with an FiO2 of 80. Shows moderate vague patchy infiltrates in both the mid and lower lung dinero bilaterally. Hospital medicine was asked to admit the patient for further management. 09/20 Requiring HHFNC with flow of 30, FIO2 80. Increased Dexamethasone to 20 mg IV daily for severe ARDS. CRP trending up. BANDAR negative for COVID and Influenza A+B. 09/21 Increasing CRP, started Baricitinib. PANTHER resulted as not detected. Clinically this appears to be ARDS secondary to a COVID illness that started around 09/04/21. Started Precedex for anxiety due to dyspnea. 09/22 Oxygenation improved after proning, continues on HHFNC. Feeling better today, CRP downtrending. Trial of Atarax prn for anxiety. 09/23 Atarax did not suffice for anxiety, went back on Precedex infusion overnight for anxiety. This morning started Valium prn for anxiety. Overall oxygenation has improved. Oxygen saturation improves when the patient is asleep and anxiety is controlled. LFT trending up, ordered a RUQ ultrasound and hepatitis b and c screening. 09/24 Patient says he is feeling a little bit better today. Breathing a little bit be tter. Was on Vapotherm yesterday and is now on high flow nasal cannula at 8 L. Mild cough. Patient gets quite anxious at times. Was on low-dose Valium but that was not helping. He was previously on Precedex including last night but had some mild bradycardia. Gave a dose of IV Ativan 0.5 mg which seemed to really help. Liver enzymes have remained high, AST insignificantly lower. ALT mildly marija vated. Stop the baricitinib due to the transaminitis and held high-dose steroid for today. Review of Systems: denies headache/fever/chills/nausea/vomiting/chest or abdominal pain/diarrhea. Otherwise see above. Constitutional Vitals: Vital Signs Temp Pulse Resp BP Pulse Ox 96.5 F L 67 15 145/97 95 09/24/21 08:01 09/23/21 15:33 09/24/21 08:01 09/24/21 08:01 09/24/21 08:01 Period Temp Pulse Resp BP Sys/Reyes Pulse Ox Last 24 Hr 96.5 F-97.9 F 54-67 13-29 98-161/69-102 88-99 Intake and Output 09/23/21 09/24/21 09/24/21 21:59 05:59 13:59 Intake Total 600 405 Output Total 1550 525 475 Balance -950 -120 -475 Weight 101.514 kg Intake & Output: Intake & Output 09/23/21 09/24/21 09/24/21 21:59 05:59 13:59 Intake Total 600 405 Output Total 1550 525 475 Balance -950 -120 -475 Weight 101.514 kg Intake: Nourishment/Supplement quantity 240 (ml) IV 45 Precedex 400 Mcg/100 ml 45 Dextrose 400 Mcg In Premix 1 Bag @ 0.2 MCG/KG/HR 5.21 mls/hr IV .[id number] [facility] Rx#:[id number] Oral 360 360 Output: Void Amount 1550 525 475 Other: Meal o.5 egg salad sandwich, fruit cup Percent of Meal Consumed 100% Feeding Ability Independent Urine Appearance Clear Urine Color Dark Yellow Urine Odor Normal Stool Size Large Stool Color Brown Stool Consistency Soft # Voids 1 Exam: General: Alert, Awake, No acute Distress, obese Eyes/N/T: EOMI, Head/Neck: neck supple, CV: RRR, No murmurs, Pulm: mild rales b/l, no wheezing, nonlabored Abd: soft, nontender, +BS x4 Ext: no clubbing/cyanosis/edema Neuro: Alert, no focal deficits, moves all extremities, Skin: warm/dry OBJ DATA Labs CBC & Chem 7: 09/24/21 05:20 09/24/21 05:29 Labs: Abnormal Lab Results 09/24/21 09/24/21 09/24/21 05:29 05:29 05:20 WBC 11.3 H RBC 4.45 L Hct MPV 11.0 H Seg Neutrophils % Lymphocytes % Potassium 5.4 H Carbon Dioxide BUN 28 H Glucose 168 H Calcium Phosphorus 4.7 H GGT 327 H AST 177 H ALT 595 H Alkaline Phosphatase 146 H Lactate Dehydrogenase 422 H C-Reactive Protein 2.40 H Triglycerides 199 H Procalcitonin 0.17 H 09/23/21 09/23/21 09/22/21 05:50 05:50 05:26 WBC 11.3 H 12.0 H RBC 4.42 L 4.27 L Hct 40.0 L MPV 11.2 H 11.2 H Seg Neutrophils % 86 H 86 H Lymphocytes % 9 L 6 L Potassium Carbon Dioxide BUN 26 H Glucose 167 H Calcium Phosphorus 4.7 H GGT 307 H AST 184 H ALT 537 H Alkaline Phosphatase 155 H Lactate Dehydrogenase 455 H C-Reactive Protein Triglycerides 222 H Procalcitonin 09/22/21 09/22/21 05:22 05:21 WBC RBC Hct MPV Seg Neutrophils % Lymphocytes % Potassium Carbon Dioxide 21 L BUN 24 H Glucose 224 H Calcium 8.5 L Phosphorus GGT 249 H AST 58 H ALT 198 H Alkaline Phosphatase 138 H Lactate Dehydrogenase 469 H C-Reactive Protein 12.30 H Triglycerides 258 H Procalcitonin Meds: Medications Acetaminophen (Acetaminophen 325 Mg Tablet) 650 mg PO Q6HP PRN; Protocol PRN Reason: Per Pain Protocol/Fever > 101 Last Admin: 09/21/21 01:51 Dose: 650 mg Documented by: Ceftriaxone Sodium (Ceftriaxone 1 Gm Vial) 1 gm IV Q24H [facility]; Protocol Last Admin: 09/23/21 08:11 Dose: 1 gm Documented by: Dexamethasone (Dexamethasone 10 Mg/Ml Vial) 20 mg IV DAILY [facility] Stop: 09/25/21 08:59 Last Admin: 09/23/21 08:10 Dose: 20 mg Documented by: Dexamethasone (Dexamethasone 10 Mg/Ml Vial) 10 mg IV DAILY [facility] Stop: 09/30/21 08:59 Dextrose (Dextrose 50% 50 Ml Vial) 0 ml IV UD PRN PRN Reason: Hypoglycemia Diagnostic Test (Pha) (Accu-Chek 1 Each Strip) 1 each FS [facility] Last Admin: 09/23/21 21:09 Dose: 1 each Documented by: Diazepam (Diazepam 2 Mg Tablet) 2 mg PO TIDP PRN PRN Reason: anxiety Last Admin: 09/23/21 22:51 Dose: 2 mg Documented by: Enoxaparin Sodium (Enoxaparin 40 Mg/0.4 Ml Syringe) 40 mg SQ DAILY [facility] Last Admin: 09/23/21 08:11 Dose: 40 mg Documented by: Glucose (Dextrose 31 Gm Oral.Susp) 15 gm PO PRN PRN PRN Reason: Hypoglycemia Dexmedetomidine HCl 400 mcg/ (Premix) 100 mls @ 5.21 mls/hr IV .[id number] [facility]; Protocol Last Titration: 09/24/21 05:30 Dose: 0.4 mcg/kg/hr, 10.419 mls/hr Documented by: Insulin Human Lispro (Insulin Lispro 1 Unit/0.01 Ml Unit) 0 unit SQ [facility]; Protocol Last Admin: 09/23/21 21:10 Dose: 3 units Documented by: Lactulose (Lactulose 20 Gm/30 Ml Oral.Comfort) 10 gm PO DAILYP PRN PRN Reason: Constipation Ondansetron HCl (Ondansetron 4 Mg/2 Ml Vial) 4 mg IV Q4HP PRN; Protocol PRN Reason: Nausea And Vomiting Senna (Sennosides 1 Tablet) 2 tab PO HSP PRN PRN Reason: Constipation Sodium Chloride (0.9 % Sodium Chloride 10 Ml Syringe) 10 ml IV Q8 [facility] Last Admin: 09/24/21 04:38 Dose: 10 ml Documented by: Tramadol HCl (Tramadol 50 Mg Tablet) 50 mg PO Q4HP PRN; Protocol PRN Reason: Pain Last Admin: 09/23/21 08:11 Dose: 50 mg Documented by: A/P Narrative A/P Narrative: A: #Covid PNA w/Severe ARDS: -elevated pct improving -crp improving #Acute hypoxic respiratory failure: -was on vapotherm yesterday, now on 8L HFNC #Leukocytosis, mild: likely steroid induced, stable #Transaminitis: likely 2/2 viral COVID illness. suspect worsened by Baricitinib or less likely by high-dose dexamethasone -liver U/S unremarkable. Hep B surface Ag and Hep C ab negative #Obesity: BMI 31 Plan: -High dose Dexamethasone for severe ARDS / Baricitinib(stop d/t LFT's) / -Oxygen supplementation, preferably with HHFNC if tolerated, weaning to nasal canula. -Empiric Ceftriaxone / Azithromycin -ativan prn for anxiety -Proning/mobilization/OOB to chair -pt/ot -ppx: Lovenox SQ Code status: Shake Loader Spent With Patient Time: Total time spent is greater than 50% in coordination of care (as documented) at patient's floor/unit and/or counseling patient: QUALITY VTE Deep Vein Thrombosis/Pulmonary Embolism Present on Admission: No
[2021-09-24 08:32] LABS: Lymphocytes % 11 % (15-49); Monocytes % (Manual) 13 % (1-12); Platelet Estimate NORMAL (Normal); RBC Morphology NORMAL (Normal); Segmented Neutrophils % 76 % (38-78)
[2021-09-24] MEDS: INSULIN LISPRO 1 UNIT/0.01 ML UNIT SQ SCH ×4 (08:58→20:45)
[2021-09-24] MEDS ORDERED: LORazepam 2 MG/ML VIAL IV ONE (09:07)
[2021-09-24] MEDS: cefTRIAXone 1 GM VIAL IV SCH (09:10)
[2021-09-24] MEDS: ENOXAPARIN 40 MG/0.4 ML SYRINGE SQ SCH (09:11)
[2021-09-24] MEDS: LORazepam 2 MG/ML VIAL IV PRN ×2 (14:49→20:36)
[2021-09-24] MEDS: SODIUM CHLORIDE NASAL 1 SPRAY BOTTLE NAS PRN (17:26)
[2021-09-24] MEDS: traMADol 50 MG TABLET PO PRN (20:36)
[2021-09-25] MEDS: DEXMEDETOMIDINE 400 MCG in PREMIX 1 BAG IV SCH ×2 (00:16→09:26)
[2021-09-25] MEDS: 0.9 % SODIUM CHLORIDE 10 ML SYRINGE IV SCH ×3 (05:17→21:17)
[2021-09-25 06:53] LABS: Basophils # (Auto) 0.03 K/mcL (0.00-0.30); Basophils % (Auto) 0.3 % (0.0-2.0); Hematocrit 43.7 % (40.1-51.0); Hemoglobin 14.8 g/dL (13.7-17.5); Lymphocytes # (Auto) 1.19 K/mcL (1.50-4.80); Mean Corpuscular HGB Conc 33.9 g/dL (31.0-36.0); Mean Platelet Volume 10.8 fL (7.4-10.4); Monocytes # (Auto) 1.13 K/mcL (0.10-0.90); Monocytes % (Auto) 11.4 % (1.0-12.0); Neutrophils % (Auto) 75.3 % (38.0-78.0); Platelet Count 274 K/mcL (140-440); RBC 4.55 M/mcL (4.63-6.08); Red Cell Distribution Width 11.9 % (11.5-14.5); WBC 9.9 K/mcL (4.5-11.0)
--- NOTE | 2021-09-25 07:49 | Internal Med Progress Note ---
SUBJECTIVE Subjective Patient information: Note initiated : 09/25/21 at 7:47 am Service Date, if different from initiated Date: [] Patient: Ruben Helm a 50 y/o M admitted on 09/19/21 for shortness of breath, covid +. Chief Complaint: [] Interval history: Ruben Helm is a 50-year-old male with obesity, BMI 31, and no other significant past medical history who was diagnosed with COVID-19 on 09/06/2021 with a home test kit. The patient presented to the emergency department on 09/12/2021 and was discharged to home, his symptoms progressively worsened and he returned to the emergency department on 09/16/2021 and was discharged to home with dexamethasone and home oxygen due to bed capacity constraints in the hospital. During that visit, a CT PE protocol was negative for pulmonary embolism and did show typical COVID-19 infiltrates. The patient returned to the emergency department on 09/19/2021 for progressively worsening symptoms and found to be severely hypoxic requiring heated and humidified high flow nasal cannula with an FiO2 of 80. Shows moderate vague patchy infiltrates in both the mid and lower lung dinero bilaterally. Hospital medicine was asked to admit the patient for further management. 09/20 Requiring HHFNC with flow of 30, FIO2 80. Increased Dexamethasone to 20 mg IV daily for severe ARDS. CRP trending up. BANDAR negative for COVID and Influenza A+B. 09/21 Increasing CRP, started Baricitinib. PANTHER resulted as not detected. Clinically this appears to be ARDS secondary to a COVID illness that started around 09/04/21. Started Precedex for anxiety due to dyspnea. 09/22 Oxygenation improved after proning, continues on HHFNC. Feeling better today, CRP downtrending. Trial of Atarax prn for anxiety. 09/23 Atarax did not suffice for anxiety, went back on Precedex infusion overnight for anxiety. This morning started Valium prn for anxiety. Overall oxygenation has improved. Oxygen saturation improves when the patient is asleep and anxiety is controlled. LFT trending up, ordered a RUQ ultrasound and hepatitis b and c screening. 09/24 Patient says he is feeling a little bit better today. Breathing a little bit be tter. Was on Vapotherm yesterday and is now on high flow nasal cannula at 8 L. Mild cough. Patient gets quite anxious at times. Was on low-dose Valium but that was not helping. He was previously on Precedex including last night but had some mild bradycardia. Gave a dose of IV Ativan 0.5 mg which seemed to really help. Liver enzymes have remained high, AST insignificantly lower. ALT mildly marija vated. Stop the baricitinib due to the transaminitis and held high-dose steroid for today. 09/25 Patient continues to slowly feel better. Feels like breathing is little easier. Mild cough. Patient now on 10 L high flow nasal cannula from [employer] Review of Systems: denies headache/fever/chills/nausea/vomiting/chest or abdominal pain/diarrhea. Otherwise see above. Constitutional Vitals: Vital Signs Temp Pulse Resp BP Pulse Ox 97.2 F 67 22 102/76 92 09/25/21 00:02 09/23/21 15:33 09/25/21 06:03 09/25/21 06:03 09/25/21 06:03 Period Temp Pulse Resp BP Sys/Reyes Pulse Ox Last 24 Hr 96.5 F-97.8 F 14-30 89-145/56-97 90-96 Intake and Output 09/24/21 09/25/21 09/25/21 21:59 05:59 13:59 Intake Total 50 300 Output Total 300 575 Balance -300 -525 300 Weight 101.106 kg Intake & Output: Intake & Output 09/24/21 09/25/21 09/25/21 21:59 05:59 13:59 Intake Total 50 300 Output Total 300 575 Balance -300 -525 300 Weight 101.106 kg Intake: IV 50 Precedex 400 Mcg/100 ml 50 Dextrose 400 Mcg In Premix 1 Bag @ 0.2 MCG/KG/HR 5.21 mls/hr IV .[id number] [facility] Rx#:[id number] Oral 300 Output: Urine Catheter Amount 100 Void Amount 200 575 Other: Urine Appearance Clear Clear Urine Color Dark Lara Dark Yellow Urine Odor Normal Stool Size Moderate Stool Color Brown # Bowel Movements 1 # of times incontinent of 0 Bowels Exam: General: Alert, Awake, No acute Distress, obese Eyes/N/T: EOMI, Head/Neck: neck supple, CV: RRR, No murmurs, Pulm: mild rales b/l improved, no wheezing, nonlabored Abd: soft, nontender, +BS x4 Ext: no clubbing/cyanosis/edema Neuro: Alert, no focal deficits, moves all extremities, Skin: warm/dry OBJ DATA Labs CBC & Chem 7: 09/25/21 06:03 09/25/21 06:03 Labs: Abnormal Lab Results 09/25/21 09/24/21 09/24/21 06:03 05:29 05:29 WBC RBC 4.55 L MPV 10.8 H Lymph % (Auto) 12.0 L Lymph # (Auto) 1.19 L [place] # (Auto) 1.13 H Seg Neutrophils % Lymphocytes % Monocytes % (Manual) D-Dimer 13.98 H Potassium BUN Glucose Phosphorus GGT AST ALT Alkaline Phosphatase Lactate Dehydrogenase C-Reactive Protein Triglycerides Procalcitonin 0.17 H 09/24/21 09/24/21 09/23/21 05:29 05:20 05:50 WBC 11.3 H RBC 4.45 L MPV 11.0 H Lymph % (Auto) Lymph # (Auto) [place] # (Auto) Seg Neutrophils % Lymphocytes % 11 L Monocytes % (Manual) 13 H D-Dimer Potassium 5.4 H BUN 28 H 26 H Glucose 168 H 167 H Phosphorus 4.7 H 4.7 H GGT 327 H 307 H AST 177 H 184 H ALT 595 H 537 H Alkaline Phosphatase 146 H 155 H Lactate Dehydrogenase 422 H 455 H C-Reactive Protein 2.40 H Triglycerides 199 H 222 H Procalcitonin 09/23/21 09/22/21 05:50 05:26 WBC 11.3 H RBC 4.42 L MPV 11.2 H Lymph % (Auto) Lymph # (Auto) [place] # (Auto) Seg Neutrophils % 86 H 86 H Lymphocytes % 9 L 6 L Monocytes % (Manual) D-Dimer Potassium BUN Glucose Phosphorus GGT AST ALT Alkaline Phosphatase Lactate Dehydrogenase C-Reactive Protein Triglycerides Procalcitonin Meds: Medications Acetaminophen (Acetaminophen 325 Mg Tablet) 650 mg PO Q6HP PRN; Protocol PRN Reason: Per Pain Protocol/Fever > 101 Last Admin: 09/21/21 01:51 Dose: 650 mg Documented by: Ceftriaxone Sodium (Ceftriaxone 1 Gm Vial) 1 gm IV Q24H [facility]; Protocol Last Admin: 09/24/21 09:10 Dose: 1 gm Documented by: Dexamethasone (Dexamethasone 10 Mg/Ml Vial) 10 mg IV DAILY [facility] Stop: 09/30/21 08:59 Dextrose (Dextrose 50% 50 Ml Vial) 0 ml IV UD PRN PRN Reason: Hypoglycemia Diagnostic Test (Pha) (Accu-Chek 1 Each Strip) 1 each FS [facility] Last Admin: 09/24/21 20:37 Dose: 1 each Documented by: Enoxaparin Sodium (Enoxaparin 40 Mg/0.4 Ml Syringe) 40 mg SQ DAILY [facility] Last Admin: 09/24/21 09:11 Dose: 40 mg Documented by: Glucose (Dextrose 31 Gm Oral.Susp) 15 gm PO PRN PRN PRN Reason: Hypoglycemia Hydroxyzine HCl (Hydroxyzine 25 Mg Tablet) 50 mg PO TIDP PRN PRN Reason: Anxiety Dexmedetomidine HCl 400 mcg/ (Premix) 100 mls @ 5.21 mls/hr IV .[id number] [facility]; Protocol Last Titration: 09/25/21 04:16 Dose: 0.4 mcg/kg/hr, 10.419 mls/hr Documented by: Insulin Human Lispro (Insulin Lispro 1 Unit/0.01 Ml Unit) 0 unit SQ [facility]; Protocol Last Admin: 09/24/21 20:45 Dose: 2 units Documented by: Lactulose (Lactulose 20 Gm/30 Ml Oral.Comfort) 10 gm PO DAILYP PRN PRN Reason: Constipation Lorazepam (Lorazepam 2 Mg/Ml Vial) 0.5 mg IV Q6HP PRN PRN Reason: ANXIETY/SEDATION Last Admin: 09/24/21 20:36 Dose: 0.5 mg Documented by: Ondansetron HCl (Ondansetron 4 Mg/2 Ml Vial) 4 mg IV Q4HP PRN; Protocol PRN Reason: Nausea And Vomiting Senna (Sennosides 1 Tablet) 2 tab PO HSP PRN PRN Reason: Constipation Sodium Chloride (0.9 % Sodium Chloride 10 Ml Syringe) 10 ml IV Q8 [facility] Last Admin: 09/25/21 05:17 Dose: 10 ml Documented by: Sodium Chloride (Sodium Chloride Nasal 1 [place] Bottle) 2 spray HINA Q4HP PRN PRN Reason: Congestion Last Admin: 09/24/21 17:26 Dose: 2 spray Documented by: Tramadol HCl (Tramadol 50 Mg Tablet) 50 mg PO Q4HP PRN; Protocol PRN Reason: Pain Last Admin: 09/24/21 20:36 Dose: 50 mg Documented by: A/P Narrative A/P Narrative: A: #Covid PNA w/Severe ARDS: -elevated pct improved -crp improving #Acute hypoxic respiratory failure: -on 8L HFNC #Leukocytosis, mild: likely steroid induced, resolved #Transaminitis: likely 2/2 viral COVID illness. suspect worsened by Baricitinib or less likely by high-dose dexamethasone -liver U/S unremarkable. Hep B surface Ag and Hep C ab negative #Obesity: BMI 31 Plan: -Dexamethasone / Baricitinib(stopped d/t LFT's) -Oxygen supplementation, preferably with HHFNC if tolerated, weaning to nasal canula. -Empiric Ceftriaxone / Azithromycin finished -ativan prn for anxiety -Proning/mobilization/OOB to chair -pt/ot -ppx: Lovenox SQ Code status: Applications Scientist Spent With Patient Time: Total time spent is greater than 50% in coordination of care (as documented) at patient's floor/unit and/or counseling patient: QUALITY VTE Deep Vein Thrombosis/Pulmonary Embolism Present on Admission: No
[2021-09-25] MEDS: ENOXAPARIN 40 MG/0.4 ML SYRINGE SQ SCH (07:54)
[2021-09-25] MEDS: cefTRIAXone 1 GM VIAL IV SCH (07:55)
[2021-09-25 07:58] LABS: ALT/SGPT 604 U/L (<40); AST/SGOT 147 U/L (<40); Albumin 3.2 gm/dL (3.2-5.2); Albumin/Globulin Ratio 0.9 (1.0-2.3); Alkaline Phosphatase 135 U/L (39-117); Bilirubin,Direct 0.2 mg/dL (<0.3); Bilirubin,Total 0.5 mg/dL (0.1-1.0); Blood Urea Nitrogen 29 mg/dL (6-20); Calcium 8.9 mg/dL (8.6-10.4); Carbon Dioxide 23 mmol/L (22-30); Chloride 99 mmol/L (96-108); Globulin 3.6 gm/dL (2.2-3.7); Glomerular Filtration Rate 98; Glucose 139 mg/dL (70-105); Lactate Dehydrogenase 337 U/L (135-225); Phosphorous 4.2 mg/dL (2.5-4.5); Triglycerides 212 mg/dL (<150); Uric Acid 7.6 mg/dL (2.5-8.0)
[2021-09-25] MEDS ORDERED: DEXAMETHASONE 10 MG/ML VIAL IV SCH ×2 (09:00)
[2021-09-25] MEDS: INSULIN LISPRO 1 UNIT/0.01 ML UNIT SQ SCH ×4 (09:26→21:17)
[2021-09-25] MEDS: SODIUM CHLORIDE NASAL 1 SPRAY BOTTLE NAS PRN (09:27)
[2021-09-25] MEDS: LORazepam 2 MG/ML VIAL IV PRN (21:16)
[2021-09-26] MEDS: 0.9 % SODIUM CHLORIDE 10 ML SYRINGE IV SCH ×3 (05:44→21:25)
[2021-09-26 07:33] LABS: ALT/SGPT 634 U/L (<40); AST/SGOT 173 U/L (<40); Albumin 3.6 gm/dL (3.2-5.2); Albumin/Globulin Ratio 1.2 (1.0-2.3); Alkaline Phosphatase 144 U/L (39-117); Bilirubin,Total 0.4 mg/dL (0.1-1.0); Blood Urea Nitrogen 25 mg/dL (6-20); Calcium 8.9 mg/dL (8.6-10.4); Carbon Dioxide 26 mmol/L (22-30); Chloride 95 mmol/L (96-108); Glomerular Filtration Rate 103; Glucose 139 mg/dL (70-105)
[2021-09-26] MEDS ORDERED: SODIUM POLYSTYRENE SULFONATE 15 GM/60 ML SUSPENSION PO ONE (07:40)
--- NOTE | 2021-09-26 07:41 | Internal Med Progress Note ---
SUBJECTIVE Subjective Patient information: Note initiated : 09/26/21 at 7:39 am Service Date, if different from initiated Date: [] Patient: Ruben Helm a 50 y/o M admitted on 09/19/21 for shortness of breath, covid +. Chief Complaint: [] Interval history: Ruben Helm is a 50-year-old male with obesity, BMI 31, and no other significant past medical history who was diagnosed with COVID-19 on 09/06/2021 with a home test kit. The patient presented to the emergency department on 09/12/2021 and was discharged to home, his symptoms progressively worsened and he returned to the emergency department on 09/16/2021 and was discharged to home with dexamethasone and home oxygen due to bed capacity constraints in the hospital. During that visit, a CT PE protocol was negative for pulmonary embolism and did show typical COVID-19 infiltrates. The patient returned to the emergency department on 09/19/2021 for progressively worsening symptoms and found to be severely hypoxic requiring heated and humidified high flow nasal cannula with an FiO2 of 80. Shows moderate vague patchy infiltrates in both the mid and lower lung dinero bilaterally. Hospital medicine was asked to admit the patient for further management. 09/20 Requiring HHFNC with flow of 30, FIO2 80. Increased Dexamethasone to 20 mg IV daily for severe ARDS. CRP trending up. BANDAR negative for COVID and Influenza A+B. 09/21 Increasing CRP, started Baricitinib. PANTHER resulted as not detected. Clinically this appears to be ARDS secondary to a COVID illness that started around 09/04/21. Started Precedex for anxiety due to dyspnea. 09/22 Oxygenation improved after proning, continues on HHFNC. Feeling better today, CRP downtrending. Trial of Atarax prn for anxiety. 09/23 Atarax did not suffice for anxiety, went back on Precedex infusion overnight for anxiety. This morning started Valium prn for anxiety. Overall oxygenation has improved. Oxygen saturation improves when the patient is asleep and anxiety is controlled. LFT trending up, ordered a RUQ ultrasound and hepatitis b and c screening. 09/24 Patient says he is feeling a little bit better today. Breathing a little bit be tter. Was on Vapotherm yesterday and is now on high flow nasal cannula at 8 L. Mild cough. Patient gets quite anxious at times. Was on low-dose Valium but that was not helping. He was previously on Precedex including last night but had some mild bradycardia. Gave a dose of IV Ativan 0.5 mg which seemed to really help. Liver enzymes have remained high, AST insignificantly lower. ALT mildly marija vated. Stop the baricitinib due to the transaminitis and held high-dose steroid for today. 09/25 Patient continues to slowly feel better. Feels like breathing is little easier. Mild cough. Patient now on 10 L high flow nasal cannula from Vapotherm 09/26 Patient states poor sleep. He is currently on 9 L high flow nasal cannula. Very slow but gradual improvement. Potassium mildly elevated 5.7. AST fluctuating elevated from yesterday but similar to the previous day. ALT slowly elevating. Adjusted some medications and hold dexamethasone for today and follow-up liver enzymes tomorrow. Liver/gb ultrasound was unremarkable. Review of Systems: denies headache/fever/chills/nausea/vomiting/chest or abdominal pain/diarrhea. Otherwise see above. Constitutional Vitals: Vital Signs Temp Pulse Resp BP Pulse Ox 98.2 F 67 25 H 116/84 97 09/26/21 04:00 09/26/21 05:56 09/26/21 06:35 09/26/21 06:00 09/26/21 06:00 Period Temp Pulse Resp BP Sys/Reyes Pulse Ox Last 24 Hr 96.8 F-98.2 F 67 12-30 81-132/58-90 91-100 Intake and Output 09/25/21 09/26/21 09/26/21 21:59 05:59 13:59 Intake Total 1250 320 Output Total 800 450 Balance 450 -130 Weight 100.335 kg Intake & Output: Intake & Output 09/25/21 09/26/21 09/26/21 21:59 05:59 13:59 Intake Total 1250 320 Output Total 800 450 Balance 450 -130 Weight 100.335 kg Intake: Oral 1250 320 Output: Void Amount 800 450 Other: Urine Appearance Clear Clear Urine Color Bright Yellow Pale Urine Odor Strong Stool Size Small Stool Color Brown Stool Consistency Loose # Bowel Movements 1 # of times incontinent of 0 Bowels Exam: General: Alert, Awake, No acute Distress, obese Eyes/N/T: EOMI, Head/Neck: neck supple, CV: RRR, No murmurs, Pulm: mild rales b/l improving, no wheezing, nonlabored Abd: soft, nontender, +BS x4 Ext: no clubbing/cyanosis/edema Neuro: Alert, no focal deficits, moves all extremities, Skin: warm/dry OBJ DATA Labs CBC & Chem 7: 09/25/21 06:03 09/26/21 05:35 Labs: Abnormal Lab Results 09/26/21 09/25/21 09/25/21 05:35 06:03 06:03 WBC RBC 4.55 L MPV 10.8 H Lymph % (Auto) 12.0 L Lymph # (Auto) 1.19 L [place] # (Auto) 1.13 H Seg Neutrophils % Lymphocytes % Monocytes % (Manual) D-Dimer Potassium 5.7 H Chloride 95 L BUN 25 H 29 H Glucose 139 H 139 H Phosphorus GGT 325 H AST 173 H 147 H ALT 634 H 604 H Alkaline Phosphatase 144 H 135 H Lactate Dehydrogenase 337 H C-Reactive Protein Albumin/Globulin Ratio 0.9 L Triglycerides 212 H Procalcitonin 09/24/21 09/24/21 09/24/21 05:29 05:29 05:29 WBC RBC MPV Lymph % (Auto) Lymph # (Auto) [place] # (Auto) Seg Neutrophils % Lymphocytes % Monocytes % (Manual) D-Dimer 13.98 H Potassium 5.4 H Chloride BUN 28 H Glucose 168 H Phosphorus 4.7 H GGT 327 H AST 177 H ALT 595 H Alkaline Phosphatase 146 H Lactate Dehydrogenase 422 H C-Reactive Protein 2.40 H Albumin/Globulin Ratio Triglycerides 199 H Procalcitonin 0.17 H 09/24/21 09/23/21 05:20 05:50 WBC 11.3 H RBC 4.45 L MPV 11.0 H Lymph % (Auto) Lymph # (Auto) [place] # (Auto) Seg Neutrophils % 86 H Lymphocytes % 11 L 9 L Monocytes % (Manual) 13 H D-Dimer Potassium Chloride BUN Glucose Phosphorus GGT AST ALT Alkaline Phosphatase Lactate Dehydrogenase C-Reactive Protein Albumin/Globulin Ratio Triglycerides Procalcitonin Meds: Medications Acetaminophen (Acetaminophen 325 Mg Tablet) 650 mg PO Q6HP PRN; Protocol PRN Reason: Per Pain Protocol/Fever > 101 Last Admin: 09/21/21 01:51 Dose: 650 mg Documented by: Dexamethasone (Dexamethasone 10 Mg/Ml Vial) 6 mg IV DAILY [facility] Stop: 09/30/21 08:59 Last Admin: 09/25/21 07:55 Dose: 6 mg Documented by: Dextrose (Dextrose 50% 50 Ml Vial) 0 ml IV UD PRN PRN Reason: Hypoglycemia Diagnostic Test (Pha) (Accu-Chek 1 Each Strip) 1 each FS ACHS [facility] Last Admin: 09/25/21 21:16 Dose: 1 each Documented by: Enoxaparin Sodium (Enoxaparin 40 Mg/0.4 Ml Syringe) 40 mg SQ DAILY [facility] Last Admin: 09/25/21 07:54 Dose: 40 mg Documented by: Glucose (Dextrose 31 Gm Oral.Susp) 15 gm PO PRN PRN PRN Reason: Hypoglycemia Hydroxyzine HCl (Hydroxyzine 25 Mg Tablet) 50 mg PO TIDP PRN PRN Reason: Anxiety Insulin Human Lispro (Insulin Lispro 1 Unit/0.01 Ml Unit) 0 unit SQ [facility]; Protocol Last Admin: 09/25/21 21:17 Dose: Not Given Documented by: Lactulose (Lactulose 20 Gm/30 Ml Oral.Comfort) 10 gm PO DAILYP PRN PRN Reason: Constipation Lorazepam (Lorazepam 2 Mg/Ml Vial) 0.5 mg IV Q6HP PRN PRN Reason: ANXIETY/SEDATION Last Admin: 09/25/21 21:16 Dose: 0.5 mg Documented by: Ondansetron HCl (Ondansetron 4 Mg/2 Ml Vial) 4 mg IV Q4HP PRN; Protocol PRN Reason: Nausea And Vomiting Senna (Sennosides 1 Tablet) 2 tab PO HSP PRN PRN Reason: Constipation Sodium Chloride (0.9 % Sodium Chloride 10 Ml Syringe) 10 ml IV Q8 [facility] Last Admin: 09/26/21 05:44 Dose: 10 ml Documented by: Sodium Chloride (Sodium Chloride Nasal 1 [place] Bottle) 2 spray HINA Q4HP PRN PRN Reason: Congestion Last Admin: 09/25/21 09:27 Dose: 2 spray Documented by: Tramadol HCl (Tramadol 50 Mg Tablet) 50 mg PO Q4HP PRN; Protocol PRN Reason: Pain Last Admin: 09/24/21 20:36 Dose: 50 mg Documented by: A/P Narrative A/P Narrative: A: #Covid PNA w/Severe ARDS: -elevated pct improved -crp improving #Acute hypoxic respiratory failure: -on 8-10L HFNC #Leukocytosis, mild: likely steroid induced, resolved #Transaminitis: likely 2/2 viral COVID illness. suspect worsened by Baricitinib or dexamethasone -liver/gb U/S unremarkable. Hep B surface Ag and Hep C ab negative #Obesity: BMI 31 Plan: -Dexamethasone (hold today for LFT elevation)/ Baricitinib(stopped d/t LFT's) -Oxygen supplementation, weaning as able -Empiric Ceftriaxone / Azithromycin finished -ativan prn for anxiety -Proning/mobilization/OOB to chair -pt/ot -ppx: Lovenox SQ to heparin Time Spent With Patient Time: Total time spent is greater than 50% in coordination of care (as documented) at patient's floor/unit and/or counseling patient: QUALITY VTE Deep Vein Thrombosis/Pulmonary Embolism Present on Admission: No
[2021-09-26] MEDS: INSULIN LISPRO 1 UNIT/0.01 ML UNIT SQ SCH ×4 (07:48→21:24)
[2021-09-26] MEDS: HEPARIN 5,000 UNIT/ML VIAL SQ SCH ×2 (07:51→21:24)
[2021-09-26 08:29] LABS: Hepatitis B Surface Antigen Negative (Negative); Hepatitis C Virus Antibody Non-Reactive (Non-Reactive)
[2021-09-26] MEDS ORDERED: CALCIUM CARBONATE 500 MG TAB.CHEW CHEWED PRN (11:00)
[2021-09-26] MEDS: OMEPRAZOLE 20 MG CAPSULE PO SCH (17:40)
[2021-09-26] MEDS: TEMAZEPAM 15 MG CAPSULE PO SCH (21:24)
[2021-09-26] MEDS: MELATONIN 3 MG TABLET PO SCH (21:24)
[2021-09-26] MEDS: diphenhydrAMINE 25 MG CAPSULE PO SCH (21:24)
[2021-09-27] MEDS: 0.9 % SODIUM CHLORIDE 10 ML SYRINGE IV SCH ×3 (05:59→20:25)
[2021-09-27 07:04] LABS: ALT/SGPT 525 U/L (<40); AST/SGOT 121 U/L (<40); Albumin 3.4 gm/dL (3.2-5.2); Albumin/Globulin Ratio 1.3 (1.0-2.3); Alkaline Phosphatase 125 U/L (39-117); Bilirubin,Direct < 0.2 mg/dL (0-0.3); Bilirubin,Total 0.5 mg/dL (0.1-1.0); Blood Urea Nitrogen 24 mg/dL (6-20); Calcium 8.3 mg/dL (8.6-10.4); Carbon Dioxide 27 mmol/L (22-30); Chloride 97 mmol/L (96-108); Globulin 2.7 gm/dL (2.2-3.7); Glomerular Filtration Rate 98; Glucose 118 mg/dL (70-105); Lactate Dehydrogenase 369 U/L (135-225); Phosphorous 4.1 mg/dL (2.5-4.5); Triglycerides 212 mg/dL (<150)
[2021-09-27 07:09] LABS: Prothrombin Time 13.3 sec (11.9-14.5)
--- NOTE | 2021-09-27 07:30 | Internal Med Progress Note ---
SUBJECTIVE Subjective Patient information: Note initiated : 09/27/21 at 7:29 am Service Date, if different from initiated Date: [] Patient: Ruben Helm a 50 y/o M admitted on 09/19/21 for shortness of breath, covid +. Chief Complaint: [] Interval history: Ruben Helm is a 50-year-old male with obesity, BMI 31, and no other significant past medical history who was diagnosed with COVID-19 on 09/06/2021 with a home test kit. The patient presented to the emergency department on 09/12/2021 and was discharged to home, his symptoms progressively worsened and he returned to the emergency department on 09/16/2021 and was discharged to home with dexamethasone and home oxygen due to bed capacity constraints in the hospital. During that visit, a CT PE protocol was negative for pulmonary embolism and did show typical COVID-19 infiltrates. The patient returned to the emergency department on 09/19/2021 for progressively worsening symptoms and found to be severely hypoxic requiring heated and humidified high flow nasal cannula with an FiO2 of 80. Shows moderate vague patchy infiltrates in both the mid and lower lung dinero bilaterally. Hospital medicine was asked to admit the patient for further management. 09/20 Requiring HHFNC with flow of 30, FIO2 80. Increased Dexamethasone to 20 mg IV daily for severe ARDS. CRP trending up. BANDAR negative for COVID and Influenza A+B. 09/21 Increasing CRP, started Baricitinib. PANTHER resulted as not detected. Clinically this appears to be ARDS secondary to a COVID illness that started around 09/04/21. Started Precedex for anxiety due to dyspnea. 09/22 Oxygenation improved after proning, continues on HHFNC. Feeling better today, CRP downtrending. Trial of Atarax prn for anxiety. 09/23 Atarax did not suffice for anxiety, went back on Precedex infusion overnight for anxiety. This morning started Valium prn for anxiety. Overall oxygenation has improved. Oxygen saturation improves when the patient is asleep and anxiety is controlled. LFT trending up, ordered a RUQ ultrasound and hepatitis b and c screening. 09/24 Patient says he is feeling a little bit better today. Breathing a little bit be tter. Was on Vapotherm yesterday and is now on high flow nasal cannula at 8 L. Mild cough. Patient gets quite anxious at times. Was on low-dose Valium but that was not helping. He was previously on Precedex including last night but had some mild bradycardia. Gave a dose of IV Ativan 0.5 mg which seemed to really help. Liver enzymes have remained high, AST insignificantly lower. ALT mildly marija vated. Stop the baricitinib due to the transaminitis and held high-dose steroid for today. 09/25 Patient continues to slowly feel better. Feels like breathing is little easier. Mild cough. Patient now on 10 L high flow nasal cannula from Enishotherm 09/26 Patient states poor sleep. He is currently on 9 L high flow nasal cannula. Very slow but gradual improvement. Potassium mildly elevated 5.7. AST fluctuating elevated from yesterday but similar to the previous day. ALT slowly elevating. Adjusted some medications and hold dexamethasone for today and follow-up liver enzymes tomorrow. Liver/gb ultrasound was unremarkable. 09/27 Poor sleep last night. We will try adding trazodone. Patient has occasional cough. States shortness of breath is improving feels he is able to take a deeper breath. Placed on 6 L this morning. Review of Systems: denies headache/fever/chills/nausea/vomiting/chest or abdominal pain/diarrhea. Otherwise see above. Constitutional Vitals: Vital Signs Temp Pulse Resp BP Pulse Ox 98.0 F 67 18 108/75 99 09/27/21 04:00 09/27/21 06:22 09/27/21 06:53 09/27/21 06:03 09/27/21 06:53 Period Temp Pulse Resp BP Sys/Reyes Pulse Ox Last 24 Hr 97.1 F-98.4 F 67 14-24 105-130/73-97 88-99 Intake and Output 09/26/21 09/27/21 09/27/21 21:59 05:59 13:59 Intake Total 400 220 Output Total 150 150 Balance 250 70 Weight 102.257 kg Intake & Output: Intake & Output 09/26/21 09/27/21 09/27/21 21:59 05:59 13:59 Intake Total 400 220 Output Total 150 150 Balance 250 70 Weight 102.257 kg Intake: Oral 400 220 Output: Void Amount 150 150 Other: Urine Appearance Clear Clear Urine Color Dark Yellow Dark Yellow Urine Odor Normal Exam: General: Alert, Awake, No acute Distress, obese Eyes/N/T: EOMI, Head/Neck: neck supple, CV: RRR, No murmurs, Pulm: clearing b/l, no wheezing, nonlabored Abd: soft, nontender, +BS x4 Ext: no clubbing/cyanosis/edema Neuro: Alert, no focal deficits, moves all extremities, Skin: warm/dry OBJ DATA Labs CBC & Chem 7: 09/25/21 06:03 09/27/21 05:14 Labs: Abnormal Lab Results 09/27/21 09/26/21 09/25/21 05:14 05:35 06:03 RBC MPV Lymph % (Auto) Lymph # (Auto) [place] # (Auto) Lymphocytes % Monocytes % (Manual) D-Dimer Potassium 5.3 H 5.7 H Chloride 95 L BUN 24 H 25 H 29 H Glucose 118 H 139 H 139 H Calcium 8.3 L Phosphorus GGT 253 H 325 H AST 121 H 173 H 147 H ALT 525 H 634 H 604 H Alkaline Phosphatase 125 H 144 H 135 H Lactate Dehydrogenase 369 H 337 H Albumin/Globulin Ratio 0.9 L Triglycerides 212 H 212 H Procalcitonin 09/25/21 09/24/21 09/24/21 06:03 05:29 05:29 RBC 4.55 L MPV 10.8 H Lymph % (Auto) 12.0 L Lymph # (Auto) 1.19 L [place] # (Auto) 1.13 H Lymphocytes % Monocytes % (Manual) D-Dimer 13.98 H Potassium Chloride BUN Glucose Calcium Phosphorus GGT AST ALT Alkaline Phosphatase Lactate Dehydrogenase Albumin/Globulin Ratio Triglycerides Procalcitonin 0.17 H 09/24/21 09/24/21 05:29 05:20 RBC MPV Lymph % (Auto) Lymph # (Auto) [place] # (Auto) Lymphocytes % 11 L Monocytes % (Manual) 13 H D-Dimer Potassium 5.4 H Chloride BUN 28 H Glucose 168 H Calcium Phosphorus 4.7 H GGT 327 H AST 177 H ALT 595 H Alkaline Phosphatase 146 H Lactate Dehydrogenase 422 H Albumin/Globulin Ratio Triglycerides 199 H Procalcitonin Meds: Medications Acetaminophen (Acetaminophen 325 Mg Tablet) 650 mg PO Q6HP PRN; Protocol PRN Reason: Per Pain Protocol/Fever > 101 Last Admin: 09/21/21 01:51 Dose: 650 mg Documented by: Calcium Carbonate/Glycine (Calcium Carbonate 500 Mg Tab.Chew) 500 mg CHEWED Q4HP PRN PRN Reason: Dyspepsia Dextrose (Dextrose 50% 50 Ml Vial) 0 ml IV UD PRN PRN Reason: Hypoglycemia Diagnostic Test (Pha) (Accu-Chek 1 Each Strip) 1 each FS [facility] Last Admin: 09/26/21 21:24 Dose: 1 each Documented by: Diphenhydramine HCl (Diphenhydramine 25 Mg Capsule) 25 mg PO HS [facility] Last Admin: 09/26/21 21:24 Dose: 25 mg Documented by: Glucose (Dextrose 31 Gm Oral.Susp) 15 gm PO PRN PRN PRN Reason: Hypoglycemia Heparin Sodium (Porcine) (Heparin 5,000 Unit/Ml Vial) 5,000 unit SQ Q12 [facility] Last Admin: 09/26/21 21:24 Dose: 5,000 unit Documented by: Hydroxyzine HCl (Hydroxyzine 25 Mg Tablet) 50 mg PO TIDP PRN PRN Reason: Anxiety Insulin Human Lispro (Insulin Lispro 1 Unit/0.01 Ml Unit) 0 unit SQ [facility]; Protocol Last Admin: 09/26/21 21:24 Dose: Not Given Documented by: Lactulose (Lactulose 20 Gm/30 Ml Oral.Comfort) 10 gm PO DAILYP PRN PRN Reason: Constipation Lorazepam (Lorazepam 2 Mg/Ml Vial) 0.5 mg IV Q6HP PRN PRN Reason: ANXIETY/SEDATION Last Admin: 09/25/21 21:16 Dose: 0.5 mg Documented by: Melatonin (Melatonin 3 Mg Tablet) 3 mg PO QHS [facility] Last Admin: 09/26/21 21:24 Dose: 3 mg Documented by: Omeprazole (Omeprazole 20 Mg Capsule) 20 mg PO QPMCC [facility] Last Admin: 09/26/21 17:40 Dose: 20 mg Documented by: Ondansetron HCl (Ondansetron 4 Mg/2 Ml Vial) 4 mg IV Q4HP PRN; Protocol PRN Reason: Nausea And Vomiting Senna (Sennosides 1 Tablet) 2 tab PO HSP PRN PRN Reason: Constipation Sodium Chloride (0.9 % Sodium Chloride 10 Ml Syringe) 10 ml IV Q8 [facility] Last Admin: 09/27/21 05:59 Dose: 10 ml Documented by: Sodium Chloride (Sodium Chloride Nasal 1 [place] Bottle) 2 spray HINA Q4HP PRN PRN Reason: Congestion Last Admin: 09/25/21 09:27 Dose: 2 spray Documented by: Temazepam (Temazepam 15 Mg Capsule) 15 mg PO HS [facility] Last Admin: 09/26/21 21:24 Dose: 15 mg Documented by: Tramadol HCl (Tramadol 50 Mg Tablet) 50 mg PO Q4HP PRN; Protocol PRN Reason: Pain Last Admin: 09/24/21 20:36 Dose: 50 mg Documented by: A/P Narrative A/P Narrative: A: #Covid PNA w/Severe ARDS: -elevated pct improved -crp improving #Acute hypoxic respiratory failure: -on 6L HFNC #Leukocytosis, mild: likely steroid induced, resolved #Transaminitis: likely 2/2 viral COVID illness. suspect worsened by Baricitinib/dexamethasone or abx -liver/gb U/S unremarkable. Hep B surface Ag and Hep C ab negative. inr ok -switched lovenox to heparin, held dexa for day, stopped rocephin, labs improving #Obesity: BMI 31 #hyperkalemia: #Insomnia: Plan: -Dexamethasone/ Baricitinib(stopped d/t LFT's) -Oxygen supplementation, weaning as able -Empiric Ceftriaxone / Azithromycin finished -ativan prn for anxiety -Proning/mobilization/OOB to chair -pt/ot -ppx: Lovenox SQ to heparin Time Spent With Patient Time: Total time spent is greater than 50% in coordination of care (as documented) at patient's floor/unit and/or counseling patient: QUALITY VTE Deep Vein Thrombosis/Pulmonary Embolism Present on Admission: No
[2021-09-27] MEDS ORDERED: SODIUM POLYSTYRENE SULFONATE 15 GM/60 ML SUSPENSION PO ONE (07:34)
[2021-09-27] MEDS: INSULIN LISPRO 1 UNIT/0.01 ML UNIT SQ SCH ×4 (09:11→20:34)
[2021-09-27] MEDS: HEPARIN 5,000 UNIT/ML VIAL SQ SCH ×2 (09:22→20:26)
[2021-09-27] MEDS: traMADol 50 MG TABLET PO PRN (09:22)
[2021-09-27] MEDS: DEXAMETHASONE 4 MG TABLET PO SCH (09:23)
[2021-09-27] MEDS: hydrOXYzine 25 MG TABLET PO PRN ×2 (09:26→20:26)
[2021-09-27] MEDS ORDERED: CETIRIZINE 10 MG TABLET PO PRN (09:52)
[2021-09-27] MEDS ORDERED: CETIRIZINE 10 MG TABLET PO ONE (09:52)
[2021-09-27] MEDS: OMEPRAZOLE 20 MG CAPSULE PO SCH (18:12)
[2021-09-27] MEDS: diphenhydrAMINE 25 MG CAPSULE PO SCH (20:26)
[2021-09-27] MEDS: MELATONIN 3 MG TABLET PO SCH (20:26)
[2021-09-27] MEDS: TEMAZEPAM 15 MG CAPSULE PO SCH (20:26)
[2021-09-27] MEDS ORDERED: traZODone HCL 50 MG TABLET PO SCH (21:00)
[2021-09-28] MEDS: 0.9 % SODIUM CHLORIDE 10 ML SYRINGE IV SCH (04:38)
[2021-09-28 07:20] LABS: ALT/SGPT 412 U/L (<40); AST/SGOT 78 U/L (<40); Albumin 3.3 gm/dL (3.2-5.2); Albumin/Globulin Ratio 0.9 (1.0-2.3); Alkaline Phosphatase 121 U/L (39-117); Bilirubin,Total 0.4 mg/dL (0.1-1.0); Blood Urea Nitrogen 24 mg/dL (6-20); Calcium 9.1 mg/dL (8.6-10.4); Carbon Dioxide 26 mmol/L (22-30); Chloride 95 mmol/L (96-108); Globulin 3.5 gm/dL (2.2-3.7); Glomerular Filtration Rate 98; Glucose 167 mg/dL (70-105)
--- NOTE | 2021-09-28 07:46 | Internal Med Progress Note ---
SUBJECTIVE Subjective Patient information: Note initiated : 09/28/21 at 7:46 am Service Date, if different from initiated Date: [] Patient: Ruben Helm 50 y/o M admitted on 09/19/21 for shortness of breath, covid +. Chief Complaint: [] Constitutional Vitals: Vital Signs Temp Pulse Resp BP Pulse Ox 97.9 F 69 18 117/76 93 09/28/21 04:40 09/28/21 04:40 09/28/21 04:40 09/27/21 23:01 09/28/21 04:40 Period Temp Pulse Resp BP Sys/Reyes Pulse Ox Last 24 Hr 97 F-98.1 F 69-100 - 104-124/63-84 89-97 Intake and Output 09/27/21 09/28/21 09/28/21 21:59 05:59 13:59 Output Total 400 Balance -400 Weight 109.911 kg Intake & Output: Intake & Output 09/27/21 09/28/21 09/28/21 21:59 05:59 13:59 Output Total 400 Balance -400 Weight 109.911 kg Output: Void Amount 400 Other: Urine Appearance Clear Urine Color Dark Yellow Urine Odor Normal OBJ DATA Labs CBC & Chem 7: 09/25/21 06:03 09/28/21 05:24 Labs: Abnormal Lab Results 09/28/21 09/27/21 09/26/21 05:24 05:14 05:35 Sodium 132 L Potassium 5.3 H 5.7 H Chloride 95 L 95 L BUN 24 H 24 H 25 H Glucose 167 H 118 H 139 H Calcium 8.3 L GGT 253 H AST 78 H 121 H 173 H ALT 412 H 525 H 634 H Alkaline Phosphatase 121 H 125 H 144 H Lactate Dehydrogenase 369 H Albumin/Globulin Ratio 0.9 L Triglycerides 212 H 09/25/21 06:03 Sodium Potassium Chloride BUN 29 H Glucose 139 H Calcium GGT 325 H AST 147 H ALT 604 H Alkaline Phosphatase 135 H Lactate Dehydrogenase 337 H Albumin/Globulin Ratio 0.9 L Triglycerides 212 H Meds: Medications Acetaminophen (Acetaminophen 325 Mg Tablet) 650 mg PO Q6HP PRN; Protocol PRN Reason: Per Pain Protocol/Fever > 101 Last Admin: 09/21/21 01:51 Dose: 650 mg Documented by: Calcium Carbonate/Glycine (Calcium Carbonate 500 Mg Tab.Chew) 500 mg CHEWED Q4HP PRN PRN Reason: Dyspepsia Cetirizine HCl (Cetirizine 10 Mg Tablet) 10 mg PO DAILYP PRN PRN Reason: Allergy Symptoms Dexamethasone (Dexamethasone 4 Mg Tablet) 6 mg PO DAILY [facility] Last Admin: 09/27/21 09:23 Dose: 6 mg Documented by: Dextrose (Dextrose 50% 50 Ml Vial) 0 ml IV UD PRN PRN Reason: Hypoglycemia Diagnostic Test (Pha) (Accu-Chek 1 Each Strip) 1 each FS [facility] Last Admin: 09/28/21 07:38 Dose: 1 each Documented by: Diphenhydramine HCl (Diphenhydramine 25 Mg Capsule) 25 mg PO HS [facility] Last Admin: 09/27/21 20:26 Dose: 25 mg Documented by: Glucose (Dextrose 31 Gm Oral.Susp) 15 gm PO PRN PRN PRN Reason: Hypoglycemia Heparin Sodium (Porcine) (Heparin 5,000 Unit/Ml Vial) 5,000 unit SQ Q12 [facility] Last Admin: 09/27/21 20:26 Dose: 5,000 unit Documented by: Hydroxyzine HCl (Hydroxyzine 25 Mg Tablet) 50 mg PO TIDP PRN PRN Reason: Anxiety Last Admin: 09/27/21 20:26 Dose: 50 mg Documented by: Insulin Human Lispro (Insulin Lispro 1 Unit/0.01 Ml Unit) 0 unit SQ [facility]; Protocol Last Admin: 09/27/21 20:34 Dose: 3 units Documented by: Lactulose (Lactulose 20 Gm/30 Ml Oral.Comfort) 10 gm PO DAILYP PRN PRN Reason: Constipation Lorazepam (Lorazepam 2 Mg/Ml Vial) 0.5 mg IV Q6HP PRN PRN Reason: ANXIETY/SEDATION Last Admin: 09/25/21 21:16 Dose: 0.5 mg Documented by: Melatonin (Melatonin 3 Mg Tablet) 3 mg PO QHS [facility] Last Admin: 09/27/21 20:26 Dose: 3 mg Documented by: Omeprazole (Omeprazole 20 Mg Capsule) 20 mg PO QPMCC [facility] Last Admin: 09/27/21 18:12 Dose: 20 mg Documented by: Ondansetron HCl (Ondansetron 4 Mg/2 Ml Vial) 4 mg IV Q4HP PRN; Protocol PRN Reason: Nausea And Vomiting Senna (Sennosides 1 Tablet) 2 tab PO HSP PRN PRN Reason: Constipation Sodium Chloride (0.9 % Sodium Chloride 10 Ml Syringe) 10 ml IV Q8 [facility] Last Admin: 09/28/21 04:38 Dose: 10 ml Documented by: Sodium Chloride (Sodium Chloride Nasal 1 [place] Bottle) 2 spray HINA Q4HP PRN PRN Reason: Congestion Last Admin: 09/25/21 09:27 Dose: 2 spray Documented by: Temazepam (Temazepam 15 Mg Capsule) 15 mg PO [facility] Last Admin: 09/27/21 20:26 Dose: 15 mg Documented by: Tramadol HCl (Tramadol 50 Mg Tablet) 50 mg PO Q4HP PRN; Protocol PRN Reason: Pain Last Admin: 09/27/21 09:22 Dose: 50 mg Documented by: Trazodone HCl (Trazodone Hcl 50 Mg Tablet) 50 mg PO [facility] Last Admin: 09/27/21 20:26 Dose: 50 mg Documented by: A/P Time Spent With Patient Time: Total time spent is greater than 50% in coordination of care (as documented) at patient's floor/unit and/or counseling patient: QUALITY VTE Deep Vein Thrombosis/Pulmonary Embolism Present on Admission: No
[2021-09-28] MEDS: INSULIN LISPRO 1 UNIT/0.01 ML UNIT SQ SCH ×2 (08:26→12:28)
[2021-09-28] MEDS: HEPARIN 5,000 UNIT/ML VIAL SQ SCH (08:27)
[2021-09-28] MEDS: DEXAMETHASONE 4 MG TABLET PO SCH (08:27)
--- NOTE | 2021-09-28 08:45 | Discharge Summary ---
Discharge Provider Provider Patient information: Note initiated : 09/28/21 at 8:42 am Service Date, if different from initiated Date: [] Patient: Ruben Helm 50 y/o M admitted on 09/19/21 for shortness of breath, covid +. Chief Complaint: [] Date of admission: 09/19/21 20:01 Discharge date: 09/28/21 Primary care physician: PCP No Consults: 09/19/21 Consult to Physician [CONS] Stat Comment: Consulting Provider: Gerardo Cast Reason For Exam: Physician to Consult Discharge Meds Discharge Medications Home Medications albuterol sulfate 90 mcg/actuation aerosol inhaler 2 puff INHALATION Q6H PRN #8.5 g 09/16/21 [Rx Confirmed 09/19/21 Last Taken Unknown] omeprazole 20 mg tablet,delayed release 20 mg PO QPMCC 09/26/21 [History Confirmed 09/26/21 Last Taken Unknown] COURSE Hospital Course Hospital course: Interval history: Ruben Helm is a 50-year-old male with obesity, BMI 31, and no other significant past medical history who was diagnosed with COVID-19 on 09/06/2021 with a home test kit. The patient presented to the emergency department on 09/12/2021 and was discharged to home, his symptoms progressively worsened and he returned to the emergency department on 09/16/2021 and was discharged to home with dexamethasone and home oxygen due to bed capacity constraints in the hospital. During that visit, a CT PE protocol was negative for pulmonary embolism and did show typical COVID-19 infiltrates. The patient returned to the emergency department on 09/19/2021 for progressively worsening symptoms and found to be severely hypoxic requiring heated and humidified high flow nasal cannula with an FiO2 of 80. Shows moderate vague patchy infiltrates in both the mid and lower lung dinero bilaterally. Hospital medicine was asked to admit the patient for further management. 09/20 Requiring HHFNC with flow of 30, FIO2 80. Increased Dexamethasone to 20 mg IV daily for severe ARDS. CRP trending up. BANDAR negative for COVID and Influenza A+B. 09/21 Increasing CRP, started Baricitinib. PANTHER resulted as not detected. Clinically this appears to be ARDS secondary to a COVID illness that started around 09/04/21. Started Precedex for anxiety due to dyspnea. 09/22 Oxygenation improved after proning, continues on HHFNC. Feeling better today, CRP downtrending. Trial of Atarax prn for anxiety. 09/23 Atarax did not suffice for anxiety, went back on Precedex infusion overnight for anxiety. This morning started Valium prn for anxiety. Overall oxygenation has improved. Oxygen saturation improves when the patient is asleep and anxiety is controlled. LFT trending up, ordered a RUQ ultrasound and hepatitis b and c screening. 09/24 Patient says he is feeling a little bit better today. Breathing a little bit better. Was on Vapotherm yesterday and is now on high flow nasal cannula at 8 L. Mild cough. Patient gets quite anxious at times. Was on low-dose Valium but that was not helping. He was previously on Precedex including last night but had some mild bradycardia. Gave a dose of IV Ativan 0.5 mg which seemed to really help. Liver enzymes have remained high, AST insignificantly lower. ALT mildly elevated. Stop the baricitinib due to the transaminitis and held high-dose steroid for today. 09/25 Patient continues to slowly feel better. Feels like breathing is little easier. Mild cough. Patient now on 10 L high flow nasal cannula from Vapotherm 09/26 Patient states poor sleep. He is currently on 9 L high flow nasal cannula. Very slow but gradual improvement. Potassium mildly elevated 5.7. AST fluctuating elevated from yesterday but similar to the previous day. ALT slowly elevating. Adjusted some medications and hold dexamethasone for today and follow-up liver enzymes tomorrow. Liver/gb ultrasound was unremarkable. 09/27 Poor sleep last night. We will try adding trazodone. Patient has occasional cough. States shortness of breath is improving feels he is able to take a deeper breath. Placed on 6 L this morning. 09/28 Patient made significant improvement of the past 48 hours. Patient on room air to 2L NC. Stable for discharge with home oxygen. A: #Covid PNA w/Severe ARDS: #Acute hypoxic respiratory failure: #Transaminitis: likely 2/2 viral COVID illness. suspect worsened by Baricitinib/dexamethasone or abx -liver/gb U/S unremarkable. Hep B surface Ag and Hep C ab negative. inr ok -switched lovenox to heparin, held dexa for day, stopped rocephin, labs improving -Improving #Obesity: BMI 31 #hyperkalemia: #Insomnia: Discharge diagnosis: COVID-pneumonia with ARDS and acute hypoxic respiratory failure transaminit Time Spent with Patient Time attestation: Total time spent providing and/or coordinating discharge services: Time spent: Greater than 30 minutes EXAM Constitutional Vitals: Temp Pulse Resp BP Pulse Ox 97.1 F 84 18 128/87 90 09/28/21 08:00 09/28/21 08:00 09/28/21 08:00 09/28/21 08:00 09/28/21 08:00 Discharge Data Data Completed and Pending Labs on day of discharge: Labs from last 24 hours 09/28/21 05:24 Sodium 132 L Potassium 4.7 Chloride 95 L Carbon Dioxide 26 Anion Gap 11.0 BUN 24 H Creatinine 0.9 GFR Calculation 98 Glucose 167 H Calcium 9.1 Total Bilirubin 0.4 AST 78 H ALT 412 H Alkaline Phosphatase 121 H Total Protein 6.8 Albumin 3.3 Globulin 3.5 Albumin/Globulin Ratio 0.9 L Discharge Plan Patient/Caregiver Discharge Instructions Instructions: COVID-19, Using Oxygen at Home (GEN), Hypoxia (GEN) Activity Restrictions/Additional Instructions: Home oxygen for COVID-pneumonia Prescriptions: Continued albuterol sulfate 90 mcg/actuation HFA aerosol inhaler 2 puff inhalation Q6H PRN (Reason: shortness of breath or wheezing) Qty: 8.5 0RF omeprazole 20 mg Tablet,Delayed Release (Dr/Ec) 20 mg PO QPMCC 0RF Rx Instructions: PATIENT TAKES AT 1700 BEFORE DINNER Discontinued dexamethasone [Decadron] 6 mg tablet 6 mg PO QDAY Qty: 7 0RF Follow Up Plan Follow up with: Alexi German MD [Physician] - 10/04/21 8:00 am (This is a one time [facility] follow up appointment.) No,PCP [Primary Care Provider] - Patient Disposition: Home, Self-Care Prognosis: Fair Overall status at discharge: patient is progressing back to baseline Discharge Orders: Discharge Order (Routine); Ordered 09/28/21 Ordered By: Tip Strange [facility] VTE Deep Vein Thrombosis/Pulmonary Embolism Present on Admission: No
== END 2021-09-28 13:10 | disposition home or self-care (01) ==
LOC: ED 13:33 → ICU 20:01
PROVIDERS: ADMIT Internal Medicine; ATTEND Internal Medicine